=== PATIENT | female | born 1970 | race Caucasian/White ===

== ENCOUNTER 2019-11-15 17:27 | Outpatient (CLI) | payer OTHER, SELFPAY ==
[2019-11-15 18:28] LABS: Basophils Percent Auto 0.2 % (0.2-1.2); Eosinophils Absolute Auto 0.1 K/mm3 (0-0.3); Eosinophils Percent Auto 1.2 % (0-4.4); Hematocrit 38.3 % (37.0-47.0); Hemoglobin 12.7 g/dL (12.0-15.0); Immature Granulocyte Absolute 0.02 K/mm3 (0.00-0.031); Immature Granulocyte Percent A 0.3 % (0-0.5); Lymphocytes Absolute Auto 1.69 K/mm3 (0.9-3.2); Lymphocytes Percent Auto 25.7 % (18.3-44.2); Mean Corpuscular HGB Conc 33.2 g/dl (32-36); Mean Corpuscular Hemoglobin 28.7 pg (26-34); Mean Corpuscular Volume 86.7 fl (80-100); Mean Platelet Volume 10.6 fl (7.4-10.4); Monocytes Absolute Auto 0.4 K/mm3 (0.1-0.6); Monocytes Percent Auto 5.3 % (2.6-8.5); Neutrophils Absolute Auto 4.4 K/mm3 (1.3-6.7); Neutrophils Percent Auto 67.3 % (45.5-73.1); Platelet Count Result 216 k/mm3 (150-375); Red Blood Count 4.42 M/mm3 (4.2-5.4); Red Cell Distribution Width 13.3 % (11.5-14.5); White Blood Count 6.6 K/mm3 (4.5-10.0)
[2019-11-15 18:40] LABS: Blood Urea Nitrogen 15 mg/dL (7-17); Calcium 9.3 mg/dL (8.4-10.2); Carbon Dioxide 26 mmol/L (22-30); Chloride 99 mmol/L (98-107); Cholesterol 177 mg/dL (0-200); Estimated Glomerular Filt Rate > 60; Glucose 79 mg/dL (65-105); HDL Direct 61 mg/dL; Potassium 3.6 mmol/L (3.4-5.0); Sodium 136 mmol/L (137-145); Triglycerides 88 mg/dL (<150)
[2019-11-15 18:51] LABS: LDL Cholesterol Direct 102 mg/dL
[2019-11-19 07:02] LABS: FSH 6.6 mIU/mL (***); LH 3.9 mIU/mL (***)
[2019-11-23 16:56] LABS: Estradiol, Ultrasensitive 112 pg/mL
== END 2019-11-15 17:28 | disposition home or self-care (01) ==
PROVIDERS: PCP Family Medicine; Visit Provider Family Medicine
DX: Z13.1 Encounter for screening for diabetes mellitus (principal); Z13.220 Encounter for screening for lipoid disorders; N92.0 Excessive and frequent menstruation with regular cycle; Z79.899 Other long term (current) drug therapy; Z79.82 Long term (current) use of aspirin
CPT/HCPCS: 36415; 80048; 80061; 82670; 83001; 83002; 84443; 85025

== ENCOUNTER 2019-11-28 14:50 | Outpatient (CLI) | payer OTHER, SELFPAY ==
--- NOTE | ~2019-11-28 | MM_ITS ---
EXAMINATION: MM screening yoav BI w omayra HISTORY: Screening mammogram TECHNIQUE: Craniocaudal and mediolateral oblique 3-D tomosynthesis images were obtained and synthetic 2-D images were generated. CAD analysis was submitted and interpreted. COMPARISON: Comparison to multiple prior studies sequentially, with oldest reviewed study dated 06/2013. BREAST PARENCHYMAL COMPOSITION: There are scattered areas of fibroglandular density. FINDINGS: There is no evidence of suspicious mass, calcification, or architectural distortion to sugg est malignancy in either breast. There has been no suspicious interval change. IMPRESSION: 1. No mammographic evidence of malignancy. 2. Recommend routine screening mammography in one year. BI-RADS Category 1: Negative Reviewed, dictated and finalized at location A. NICAL PROJECT LEAD
== END 2019-11-28 14:51 | disposition home or self-care (01) ==
PROVIDERS: PCP Family Medicine; Visit Provider Family Medicine
DX: Z12.31 Encounter for screening mammogram for malignant neoplasm of breast (principal)
CPT/HCPCS: 77063; 77067

== ENCOUNTER 2019-12-12 12:56 | Outpatient (CLI) | payer OTHER, SELFPAY ==
--- NOTE | ~2019-12-12 | US_ITS ---
EXAMINATION: US pelvic complete w TV EXAM DATE: 12/12/2019 15:31 INDICATION: Menorrhagia. TECHNIQUE: Pelvic transabdominal and transvaginal sonogram was performed. There are multiple graysca le and Doppler images available for interpretation. Comparison is made to prior examination from 2013. FINDINGS: Uterus measures 8.5 x 6.8 x 6.0 cm, is retroverted and morphologically normal. Endometria l stripe measures 15 mm, within normal limits. There is no free pelvic fluid. Right adnexa: The ovary measures 5.0 x 3.1 x 2.6 cm, with a thick-walled cystic structure measuring 2 .2 cm, could be hemorrhagic cyst, endometrioma or possibly small cystic neoplasm; recommend 6 week fo llow-up pelvic sonogram. Ovarian vascular flow confirmed. Left adnexa: The ovary measures 4.7 x 1.9 x 2.2 cm and is morphologically normal. Ovarian vascular fl ow confirmed. IMPRESSION: 1. Complex thick-walled right ovarian cystic lesion; recommend 6 week follow-up pelvic sonogram. Reviewed, dictated and finalized at location A. IMPRESSION: 1. Complex thick-walled right ovarian cystic lesion; recommend 6 week follow-u p pelvic sonogram.
== END 2019-12-12 12:57 | disposition home or self-care (01) ==
LOC: ANHIMG 12:58
PROVIDERS: PCP Family Medicine; Visit Provider Family Medicine
DX: N92.0 Excessive and frequent menstruation with regular cycle (principal); N83.9 Noninflammatory disorder of ovary, fallopian tube and broad ligament, unspecified
CPT/HCPCS: 76830; 76856

== ENCOUNTER 2020-08-01 14:34 | Emergency (ER) | payer OTHER, SELFPAY ==
[2020-08-01 14:39] VITALS: BP 127/78; PULSE 88; RESP 12; TEMP 36.4; O2SAT 100
--- NOTE | 2020-08-01 15:02 | ED.URI ---
HPI - URI/Sore Throat General Chief Complaint: Upper Respiratory Infection Stated Complaint: sore throat/body aches/chills Time Seen by Provider: 08/01/20 14:35 Source: patient Mode of arrival: ambulatory Limitations: no limitations History of Present Illness HPI Narrative: 49-year-old female presents to urgent care with complaints of sore throat, body aches, chills, nausea and diarrhea since yesterday. Patient reports that her son had strep throat last week but he has been with his father during this illness. Patient is a home health nurse. Patient denies fever, cough, shortness of breath, wheezing or vomiting. Patient has not tried taking any [id number] medications for her symptoms. Patient denies recent travel. MD elicited complaint: sore throat Onset (ago): day(s) (1) Able to tolerate fluids by mouth: Yes Associated symptoms: chills, sore throat, nausea and diarrhea Treatments prior to arrival: none Related Data Home Medications Medication Instructions Recorded Confirmed bupropion HCl 300 mg PO DAILY 08/01/20 08/01/20 Allergies Allergy/AdvReac Type Severity Reaction Status Date / Time No Known Allergies Allergy Mild Verified 08/01/20 14:39 Review of Systems Constitutional: Constitutional: Reports chills, Denies fatigue, Denies fever(s) and Denies weakness ENT: Denies dysphagia, Denies dizziness, Denies epistaxis, Denies nasal congestion and Reports sore throat Respiratory: Respiratory: Denies chest congestion, Denies cough, Denies dyspnea and Denies wheezing Gastrointestinal: Gastrointestinal: Denies abdominal pain, Denies bloating, Denies constipation, Reports diarrhea, Reports nausea and Denies vomiting Musculoskeletal: Musculoskeletal: Denies back pain Integumentary/Breasts: Skin/Breast: Denies rash Neurologic: Denies dizziness Endocrine: Endocrine: Denies fatigue PMFSH Past Medical History Medical History Anxiety Depression HTN (hypertension) IBS (irritable bowel syndrome) Pericarditis Seizure Surgical History Surgical History History of tubal ligation Family History Family History Sibling Patient's sister is in good health Patient's brother is in good health Family history of eczema Father Depression Patient's father is in good health Family history of alcoholism Mother Hypertension Family history of eczema Family history of osteoarthritis Patient's mother is in good health Family history of allergic disorder Family history of irritable bowel syndrome Grandparent Family history of alcoholism Cerebrovascular accident Family history of malignant neoplasm, Onset Age: 70 Family history of coronary artery disease Other Asthma Diabetes mellitus Family history of arthritis Family history of development disorder Family history of malignant neoplasm of breast Family history of mental disorder Social History Social History Smoking status: Never smoker Comments At time of signature, I agree with nursing past medical, surgical, social and family history. There is no relevant family history pertinent to the presenting complaint. Exam Const: General: no acute distress and alert Nutritional Appearance: well nourished Orientation/consciousness: patient oriented x3 HENMT: Head: normal to inspection Ears: external ears normal and TM's normal bilaterally Mouth: Yes moist mucous membranes and Yes dry mucous membranes Throat: uvula midline Other: mild erythema noted to posterior pharynx Neck: Neck: normal visual inspection Resp: Effort & Inspection: normal respiratory effort Auscultation: clear to auscultation bilaterally and no wheezes Cardio: Rate: regular rate Rhythm: regular rhythm Skin: General skin exam: normal colo
== END 2020-08-01 15:20 | disposition home or self-care (01) ==
PROVIDERS: Emergency Provider Nurse Practitioner Family; PCP Family Medicine
DX: J06.9 Acute upper respiratory infection, unspecified (principal); Z20.828 Contact with and (suspected) exposure to other viral communicable diseases; I10 Essential (primary) hypertension; F32.9 Major depressive disorder, single episode, unspecified
CPT/HCPCS: 87081; 87880; 99213; G0463

== ENCOUNTER 2020-11-11 08:00 | Outpatient (CLI) | payer OTHER, SELFPAY ==
[2020-11-11 08:15] LABS: Basophils Percent Auto 0.2 % (0.2-1.2); Eosinophils Absolute Auto 0.1 K/mm3 (0-0.3); Eosinophils Percent Auto 2.3 % (0-4.4); Hematocrit 38.1 % (37.0-47.0); Hemoglobin 12.5 g/dL (12.0-15.0); Immature Granulocyte Absolute 0.01 K/mm3 (0.00-0.031); Immature Granulocyte Percent A 0.2 % (0-0.5); Lymphocytes Absolute Auto 1.42 K/mm3 (0.9-3.2); Mean Corpuscular HGB Conc 32.8 g/dl (32-36); Mean Corpuscular Hemoglobin 28.8 pg (26-34); Mean Corpuscular Volume 87.8 fl (80-100); Mean Platelet Volume 10.1 fl (7.4-10.4); Monocytes Absolute Auto 0.5 K/mm3 (0.1-0.6); Monocytes Percent Auto 7.5 % (2.6-8.5); Neutrophils Absolute Auto 4.1 K/mm3 (1.3-6.7); Neutrophils Percent Auto 66.8 % (45.5-73.1); Platelet Count Result 173 k/mm3 (150-375); Red Blood Count 4.34 M/mm3 (4.2-5.4); Red Cell Distribution Width 13.7 % (11.5-14.5); White Blood Count 6.2 K/mm3 (4.5-10.0)
[2020-11-11 09:18] LABS: Anion Gap 6 mmol/L (8-16); Blood Urea Nitrogen 20 mg/dL (7-17); Calcium 8.2 mg/dL (8.4-10.2); Carbon Dioxide 26 mmol/L (22-30); Chloride 108 mmol/L (98-107); Cholesterol 181 mg/dL (0-200); Glucose 99 mg/dL (65-105); HDL Direct 55 mg/dL; Potassium 4.4 mmol/L (3.4-5.0); Sodium 140 mmol/L (137-145); Triglycerides 98 mg/dL (<150)
[2020-11-11 09:26] LABS: LDL Cholesterol Direct 102 mg/dL
[2020-11-11 12:46] LABS: Estimated Glomerular Filt Rate > 60
== END 2020-11-11 08:01 | disposition home or self-care (01) ==
PROVIDERS: PCP Family Medicine; Visit Provider Family Medicine
DX: Z00.00 Encounter for general adult medical examination without abnormal findings (principal); Z13.220 Encounter for screening for lipoid disorders; Z13.1 Encounter for screening for diabetes mellitus
CPT/HCPCS: 36415; 80048; 80061; 85025

== ENCOUNTER 2020-11-25 15:30 | Outpatient (CLI) | payer OTHER, SELFPAY ==
--- NOTE | ~2020-11-25 | US_ITS ---
EXAMINATION: US pelvic complete w TV DATE: 11/25/2020 16:27 INDICATION: Right ovarian cyst. TECHNIQUE: Multiple transabdominal and transvaginal sonographic images of the pelvis were obtained. COMPARISON: Ultrasound 12/12/2019 FINDINGS: TRANSABDOMINAL ULTRASOUND: The uterus measures 8.2 x 5.4 x . There is no free fluid in the pelvis. TRANSVAGINAL ULTRASOUND: The endometrial complex measures 6 mm in thickness. The right ovary measures 4.2 x 2.4 x 2.5 cm. The left ovary measures 3.4 x 1.7 x 1.9 cm. There is normal vascular flow in the ovaries. IMPRESSION: 1. Normal pelvis. Reviewed, dictated and finalized at location A. ROOFER IMPRESSION: 1. Normal pelvis.
== END 2020-11-25 15:31 | disposition home or self-care (01) ==
PROVIDERS: PCP Family Medicine; Visit Provider Family Medicine
DX: N83.201 Unspecified ovarian cyst, right side (principal)
CPT/HCPCS: 76830; 76856

== ENCOUNTER 2020-12-11 07:30 | Outpatient (RCR) | payer OTHER, SELFPAY ==
--- NOTE | 2020-11-27 08:54 | OTOPEVAL ---
OCCUPATIONAL THERAPY INITIAL EVALUATION REPORT 11/27/20 Thank you for referring Madeline Rodríguez to [facility].? The patient is scheduled to be seen for therapy? 2x/week for 4 weeks. Please review, sign, date and return this plan of care KP. I agree with and certify that the following plan of care is medically necessary. Referring Physician Date Referring Provider: Kahlil Carmichael MD *OT Outpatient Evaluation Therapy Assessment Status Assessment Status Assessment Status Evaluation Outpatient Past Medical History Past Medical History Source of Past Medical History Patient Neurological History Hx Other Neurological Disorders Yes: Bilateral carpal tunnel syndrome dx 2013, wears splints PRN Cardiovascular History Hx Cardiac Disorders No Significant History Respiratory History Hx Respiratory Disorders No Significant History Gastrointestinal History Hx Gastrointestinal Disorders No Significant History Genitourinary History Hx Genitourinary Disorders No Significant History Musculoskeletal History Hx Arthritis Yes: neck, knees Hematological History Hx Hematological Disorders No Significant History Endocrine History Hx Endocrine Disorders No Significant History HEENT History Hx HEENT Disorders No Significant History Reproductive History Hx Tubal Ligation Yes Evaluation Information Problem Diagnosis left carpal tunnel, lateral epicondylitis, lesion of ulnar nerve Onset Sep 2020 Cause Insidious Subjective Information Patient reports that the left Query Text:As Reported By Patient/ arm pain flared up around Family September of 2020 after she did some home remodeling projects . She reports having constant burning pain in the left lateral elbow. She did receive a Kenalog injection (~2 weeks ago), which she states has helped the pain tremendously. She continues to have some residual pain in the left elbow, however she is now able lift objects on/off shelves now. She continues to have pain at night and during the day. 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
--- NOTE | 2020-12-18 10:27 | PCOTNOTE ---
OCCUPATIONAL THERAPY DISCHARGE SUMMARY 12/18/20 Madeline participated in the initial OT evaluation and 3 subsequent treatment sessions for left lateral epicondylitis, left ulnar nerve compression, and left median nerve compression. She called and cancelled the formal therapy reassessment this week. Called patient and she reports feeling ready for discharge as she has made progress with reduced pain in the left UE. Patient is currently independent with non-medication pain management, UE stretching for wrist and finger extensors, postural stretching HEP, and night splinting for carpal tunnel syndrome. Thank you for referring Madeline Rodríguez to [facility]. Please review, sign, date and return this Discharge Note KP. I agree with and certify that the following plan of care is medically necessary. Referring Physician Date Referring Provider: Kahlil Carmichael MD
== END 2020-12-19 10:19 | disposition home or self-care (01) ==
LOC: ANHOT 07:30
PROVIDERS: PCP Family Medicine; Visit Provider Orthopaedic Surgery
DX: G56.03 Carpal tunnel syndrome, bilateral upper limbs (principal); G56.22 Lesion of ulnar nerve, left upper limb; M77.12 Lateral epicondylitis, left elbow
CPT/HCPCS: 97018; 97035; 97110; 97140; 97165

== ENCOUNTER 2021-09-10 15:32 | Outpatient (CLI) | payer OTHER, SELFPAY | END 2021-09-10 15:33 | disposition home or self-care (01) | LOC: ANHLAB 15:38 | PROVIDERS: PCP Family Medicine; Visit Provider Family Medicine | DX: R07.0 Pain in throat (principal) | CPT/HCPCS: 87081; 87880 ==

== ENCOUNTER 2021-09-18 17:11 | Outpatient (CLI) | payer OTHER, SELFPAY ==
--- NOTE | ~2021-09-18 | MM_ITS ---
EXAMINATION: MM screening yoav BI w omayra HISTORY: Screening TECHNIQUE: Craniocaudal and mediolateral oblique 3-D tomosynthesis images were obtained and synthetic 2-D images were generated. CAD analysis was submitted and interpreted. COMPARISON: Comparison to multiple prior studies sequentially, with oldest reviewed study dated 12/22. BREAST PARENCHYMAL COMPOSITION: There are scattered areas of fibroglandular density. FINDINGS: There is no evidence of suspicious mass, calcification, or architectural distortion to sugg est malignancy in either breast. There has been no suspicious interval change. IMPRESSION: 1. No mammographic evidence of malignancy. 2. Recommend routine screening mammography in one year. BI-RADS Category 1: Negative Reviewed, dictated and finalized at location A. NET C DEVELOPER
== END 2021-09-18 17:12 | disposition home or self-care (01) ==
LOC: ANHIMG 17:12
PROVIDERS: PCP Family Medicine; Visit Provider Nurse Practitioner Family
DX: Z12.31 Encounter for screening mammogram for malignant neoplasm of breast (principal)
CPT/HCPCS: 77063; 77067

== ENCOUNTER 2022-07-11 13:32 | Emergency (ER) | payer OTHER, SELFPAY ==
[2022-07-11 13:38] VITALS: BP 121/77; PULSE 85; RESP 16; TEMP 36.2; O2SAT 99
--- NOTE | 2022-07-11 14:15 | ED.FEMALEGU ---
HPI - Female Genitourinary General Chief complaint: Urogenital-Female Stated complaint: Possible UTI History of Present Illness HPI Narrative: This a 51-year-old female comes in complaining of a possible UTI. Patient states that she just became sexually active approximately 2 months ago patient states that her she is having abdominal pain and had a period for the first time in about 7 months. Patient states that her vaginal area is sore and she has pain and not for sure where it comes from patient denies being worried about any STIs. Patient states that she was seen by her PCP for the same symptoms she was swabbed but her results are not back yet and she is just worried and wants to make sure she does not have a UTI. Patient also complains of painful sex she states that she has had her tubes tied her partner has had a vasectomy and she is on her menstrual cycle so there is no possibility of . Did attempt to review to see if we had any results back she obviously did not have her test being done at any of our facilities Related Data Home Medications Medication Instructions Recorded Confirmed bupropion HCl 300 mg 24 hr tablet, 300 mg PO DAILY 08/01/20 07/11/22 extended release Allergies Allergy/AdvReac Type Severity Reaction Status Date / Time No Known Allergies Allergy Mild Verified 07/11/22 13:36 [facility] Past Medical History Medical History (Updated 07/11/22 @ 14:17 by Rick Tavarez NP) Anxiety Carpal tunnel syndrome, left Cubital tunnel syndrome on left Depression HTN (hypertension) IBS (irritable bowel syndrome) Pericarditis Seizure Surgical History Surgical History History of tubal ligation Family History Family History Sibling Patient's sister is in good health Patient's brother is in good health Family history of eczema Father Depression Patient's father is in good health Family history of alcoholism Mother Hypertension Family history of eczema Family history of osteoarthritis Patient's mother is in good health Family history of allergic disorder Family history of irritable bowel syndrome Grandparent Family history of alcoholism Cerebrovascular accident Family history of malignant neoplasm, Onset Age: 70 Family history of coronary artery disease Other Asthma Diabetes mellitus Family history of arthritis Family history of development disorder Family history of malignant neoplasm of breast Family history of mental disorder Social History Social History Smoking status: Never smoker Exam Narrative: GENERAL:Well-appearing, well-nourished, and in no acute distress. HEAD:Normocephalic, atraumatic. EYES: PERRLA. ENT: Nares clear, Mucous membranes moist. CHEST: No respiratory distress. HEART: Regular rate and rhythm. Normal peripheral pulses. ABDOMEN: Soft, nontender, nondistended, normal active bowel sounds. EXTREMITIES: Normal range of motion. No edema. SKIN: Warm, dry, no rash. NEURO: No focal deficits. Alert and oriented x3. Course Course Level of Care: Express Care Visit Vital Signs Vital signs: Vital Signs Temperature 97.2 F L 07/11/22 13:38 Pulse Rate 85 07/11/22 13:38 Respiratory Rate 16 07/11/22 13:38 Blood Pressure 121/77 07/11/22 13:38 Pulse Oximetry 99 07/11/22 13:38 Oxygen Delivery Room Air 07/11/22 13:38 Temperature 97.2 F L 07/11/22 13:38 Pulse Rate 85 07/11/22 13:38 Respiratory Rate 16 07/11/22 13:38 Blood Pressure 121/77 07/11/22 13:38 Pulse Oximetry 99 07/11/22 13:38 Oxygen Delivery Room Air 07/11/22 13:38 MDM - Female Genitourinary Differential Diagnosis Differential diagnosis: Likely urinary tract infection, bacterial vaginosis, cervicitis, cystitis and dysmenorrhea Lab Data Labs: Urine Glu
== END 2022-07-11 14:21 | disposition home or self-care (01) ==
PROVIDERS: Emergency Provider Nurse Practitioner Family; PCP Family Medicine
DX: N30.90 Cystitis, unspecified without hematuria (principal); I10 Essential (primary) hypertension; F41.9 Anxiety disorder, unspecified; F32.A Depression, unspecified
CPT/HCPCS: 81003; 87086; 87088; 99213; G0463

== ENCOUNTER 2022-08-01 07:23 | Outpatient (CLI) | payer OTHER, SELFPAY ==
--- NOTE | ~2022-08-01 | MR_ITS ---
EXAMINATION: MR foot RT wo/w con DATE: 08/01/2022 08:24 INDICATION: Neoplasm of specified behavior of bone TECHNIQUE: Magnetic resonance imaging (MRI) of the right fore/mid foot was performed without intraven ous contrast. Sequences included axial, sagittal and coronal T1-weighted FSE and T2-weighted FS FSE, axial T1-weighted FS FSE and postcontrast axial, sagittal and coronal T1-weighted FS FSE. COMPARISON: None FINDINGS: There is an elevated enhancing mass measuring 12 x 11 x 6 mm arising projecting beyond the level of t he skin surface plantar to the webspace between the second and third toes. The mass is smooth well-de fined margins and does not appear to extend into the subdermal fat. No other mass or abnormal enhanci ng lesions identified. The bones are unremarkable with normal alignment and normal marrow signal with no reactive edema, fracture or pathologic marrow replacing process. Joint spaces are normal. No join t effusions or other abnormal fluid collections. Lisfranc ligament and the collateral ligaments at th e metatarsophalangeal and interphalangeal joints are normal. The visualized portions of the flexor an d extensor tendons as well as intrinsic musculature of the foot are normal. IMPRESSION: 1. Nonspecific 12 x 11 x 6 mm enhancing and elevated dermal based mass at the plantar aspect of the w ebspace base of the second and third toes with no evident invasion of the subdermal fat which could b e either benign such as a plantar wart or less likely malignant. Definitive diagnosis would require b iopsy. Reviewed, dictated and finalized at location B. IMPRESSION: 1. Nonspecific 12 x 11 x 6 mm enhancing and elevated dermal based mass at the p lantar aspect of the webspace base of the second and third toes with no evident invasion of the subdermal fat which could be either benign such as a plantar w art or less likely malignant. Definitive diagnosis would require biopsy.
== END 2022-08-01 07:24 | disposition home or self-care (01) ==
LOC: ANHIMG 07:25
PROVIDERS: PCP Family Medicine; Visit Provider Student in an Organized Health Care Education/Training Program
DX: D49.2 Neoplasm of unspecified behavior of bone, soft tissue, and skin (principal)
CPT/HCPCS: 73720; A9577

== ENCOUNTER 2022-09-21 13:00 | Outpatient (RCR) | payer OTHER, SELFPAY ==
--- NOTE | 2022-08-25 11:45 | PTOPEVAL1 ---
Assessment and note entered by Mary Pierre DPT Evaluation Information Assessment Status Evaluation Subjective Information Pt reports mesh bladder sling in 2004 and tubal ligation at the same time. Reports she was doing well until recently but has a long history of slight incontinence. Pt thinks she is laura- menopausal. Reports recent pelvic pain and incontinence. Urinates 6 times a day, usually not at night but occasionally will 1 time. Some pain with urination at times (has had UTI's or bacterial vaginosis). Incontinence occurs if her bladder is too full and she is rushing to void, a couple times a week. Incontinence will be a small amount, wears a liner and changes 2-3 times a day due to discharge. BM daily, no pain. Pelvic pain with infections, intercourse, and has a history of PCOS which has also caused pelvic pain. Highest pain 7/10 and lasts a short amount of time. Lowest pain 0/10. Also reports some SIJ pain and clicking after prolonged standing. Pt has been 2 times with 2 vaginal deliveries, tearing and stitches with both. Deliveries were 15 months apart. Reported Pain Level Pain Score 0: Self Report Assessment PT Clinical Summary The patient is presenting to skilled therapy with a recent increase in urinary incontinence and pelvic and SIJ pain. She presents with decreased pelvic floor strength and endurance, as well as decreased lower extremity and core strength and SIJ impairments which are contributing to her pain and incontinence. She will highly benefit from therapy to address her impairments and return safely to prior level of function. Plan of Care Interventions Electrical Stimulation,Hot Pack/Cold Pack,Manual Therapy,Neuro Re-education,Patient/Caregiver Education,Therapeutic Activities,Therapeutic Exercise,Self-Care/Home Management PT Services Indicated Yes Treatment Frequency and 1 time a week for 4 weeks Duration These treatments will address the objective and functional deficits as defined above. The patient will be advanced safely and appropriately in order for the patient to progress towards his/her prior level of function. Additional exercises will be introduced and as well as a comprehensive home exercise program upon discharge, if needed, ?to ensure carryover of functional gains achieved in the clinic. This treatment plan has been reviewed and agreement upon by the patient.
--- NOTE | 2022-09-21 13:38 | PTOPDC ---
Assessment and note entered by Mary Pierre DPT Evaluation Information Assessment Status Progress Subjective Information Pt reports improvements in her pain, highest pain 2-3/10 in her back and no incontinence in 2 weeks. Feels improvements in her ability to do her exercises. Reports no more snapping in her back as well. Still has pain with intercourse, brief and positional. Reported Pain Level Pain Score 0: Self Report Assessment PT Clinical Summary The patient has made good progress in therapy, reports overall decrease to her pelvic and back pain. She also reports improvements in urinary incontinence and has not had any recently. She demonstrates improved core and LE strength, as well as improved pelvic floor strength and endurance. Due to her progress as well as upcoming foot surgery, plan for discharge at this time. She has been educated in a thorough HEP to continue progressing independently as well as to contact MD and/or PT as needed. Plan of Care PT Services Indicated No
== END 2022-09-23 11:07 | disposition home or self-care (01) ==
LOC: ANHGOSHPT 13:00
PROVIDERS: PCP Family Medicine
DX: M62.9 Disorder of muscle, unspecified (principal)
CPT/HCPCS: 97110; 97112; 97140; 97162

== ENCOUNTER 2022-09-25 00:36 | Day surgery (SDC) | payer OTHER, SELFPAY ==
[2022-09-10 09:21] VITALS: BMI 24.7
--- NOTE | 2022-09-10 09:22 | PC.NURSE ---
Report to the Outpatient Waiting Room, entrance under the green pavilion located off [facility], at time _0700_ on date _[id number]_. Planned Procedure Time: _0900_. Time changes happen often and if your time is changed the preop area will call you the afternoon before. - You and your visitor will be asked to self-screen and do not enter if you have any COVID symptoms. - Only one visitor is requested with a max of two and NO children visitors are allowed at this time. - The patient visitor may be requested to leave or wait in car when not with patient due to distancing restrictions. - A mask is optional within the hospital. Patients may have clear liquids (water, carbonated beverages, clear teas, apple juice) until 3 hours prior to surgery with a maximum of 20 ounces. - No food from midnight until time of surgery Take the following medications with a SIP of water the morning of surgery: ____Bupropion Medications to discontinue per physician ___Cranberry and joint health Date to take last knvq___[id number] Please no make-up, nail malaysian, hairspray, perfume, deodorant, or body powder the day of surgery. No jewelry (including any body piercings) or valuables the day of surgery, leave them at home. Please take a shower or bath the night before, or the morning of, surgery with an antibacterial soap. Wear comfortable, loose fitting clothing. - Jewelry must be removed prior to entering the operating room. Rings and piercings that are not removed may be cut off. - The hospital will not accept responsibility for valuables. - Please leave all valuables, including medications, at home the day of surgery. If you are going home after surgery, a licensed industrial tractor driver must drive you home. - NO public transportation without another adult if you receive anesthesia. - We recommend that an adult stay with you for 24 hours following discharge. - We also recommend that you do not drive, make important decision, drink alcoholic beverages, or take any drugs that were not prescribed by your health care provider for at least 24 hours after your discharge time. Follow any additional instructions given to you from your surgeon. If you or anyone in your household have experienced Covid symptoms in the past week, please notify your surgeon or the nurse liaison at the phone number below for possible testing. Telephone instructions given to _Patient__and asked if any additional questions and then verbalized understanding. Patient advised to call surgeon office or pre surgery nurse liaison [phone] if any additional questions.
--- NOTE | 2022-09-25 07:23 | WPDHPUPDATE1 ---
History and Physical Update Update Date/Time: 09/25/22 07:23 History and Physical has been reviewed, including an updated exam of the patient. There are NO changes in the patient's condition. Risks, benefits, and alternatives have been discussed and questions answered. Patient agrees to proceed with procedure.
--- NOTE | 2022-09-25 07:49 | WPDANESEPPF ---
Anes - Initial Pre Proc Eval Procedure: Operation Date: 09/25/22 09:00 Proposed Procedures p Excision of Soft Tissue Skin Mass Right Foot - Ac Suárez JR, MD Date/Time: 09/25/22 07:49 Surgeon: Ac Suárez JR, MD Pre Op Diagnosis: painful soft tissue mass right foot Patient Data Age: 51 Gender: F Height: 1.63 m Weight: 65.5 kg Allergies Allergy/AdvReac Type Severity Reaction Status Date / Time No Known Allergies Allergy Mild Verified 09/10/22 09:15 Home Medications Medication Instructions Recorded Confirmed Type bupropion HCl 150 mg 24 hr tablet, 150 mg PO DAILY 09/10/22 09/10/22 History extended release cranberry fruit 450 mg tablet 900 mg PO DAILY 09/10/22 09/10/22 History (cranberry) glucosamin 375 mg-chond 300 2 cap PO DAILY 09/10/22 09/10/22 History mg-collagen 50 mg-hyaluronic acid 2 mg cap Patient hx anesthesia problems: none Family hx anesthesia problems: none Results Review: All pre-operative results and documents have been reviewed as part of the pre-operative evaluation. [facility] Past Medical History Medical History Anxiety Carpal tunnel syndrome, left Cubital tunnel syndrome on left Depression HTN (hypertension) IBS (irritable bowel syndrome) Pericarditis Seizure Surgical History Surgical History History of tubal ligation Family History Family History Sibling Patient's sister is in good health Patient's brother is in good health Family history of eczema Father Depression Patient's father is in good health Family history of alcoholism Mother Hypertension Family history of eczema Family history of osteoarthritis Patient's mother is in good health Family history of allergic disorder Family history of irritable bowel syndrome Grandparent Family history of alcoholism Cerebrovascular accident Family history of malignant neoplasm, Onset Age: 70 Family history of coronary artery disease Other Asthma Diabetes mellitus Family history of arthritis Family history of development disorder Family history of malignant neoplasm of breast Family history of mental disorder Social History Social History Smoking status: Never smoker Alcohol intake: current Drinks per week: 1 Living arrangements: with family Spiritual care concerns: No Anes - Eval Final PreProcedure Day of Procedure 09/25/22 07:49 Patient weight: normal Heart: regular rate and rhythm Lungs: clear to auscultation Airway: Mallampati scale class II Neurological: alert and oriented Last oral intake: >/= 8 hours ASA classification: II Emergent: no Anesthetic plan: proceed Anesthesia type and monitoring: general GIVS and standard monitoring Results Review: All pre-operative results and documents have been reviewed as part of the pre-operative evaluation. Informed Consent: The patient's anesthetic plan and its attendant risks and benefits were discussed with the patient/family/POA. Questions were solicited and answers provided to the satisfaction of the patient/family/POA.
[2022-09-25 07:51] VITALS: BP 105/75; PULSE 84; RESP 14; TEMP 36.5; O2SAT 98
[2022-09-25] MEDS: LACTATED RINGERS 1,000 ML 30 ML IV CONT ×2 (07:55→10:13)
[2022-09-25] MEDS: ceFAZolin 2 GM/D5W 50 ML 2 GM/50 ML BAG IVPB (09:11)
[2022-09-25] MEDS: LIDOCAINE HCL 2% PF INJ 5 ML VIAL 20 ML INFILTRATE (09:38)
[2022-09-25 09:47] VITALS: BP 96/54; PULSE 83; RESP 20; O2SAT 98
--- NOTE | 2022-09-25 09:54 | W.PM.PROC2 ---
Procedure Note - Detailed Date of Procedure 09/25/22 Pre-op Diagnosis Painful soft tissue mass right foot Post-op Diagnosis Same Procedure Performed Excision of soft tissue mass right foot Surgeon Ac Suárez JR, DPM Anesthesia MAC and Local Indications Painful mass to the plantar forefoot Findings 1.0cm wide by 1.5cm long intradermal firm nodule Description of Procedure Under mild sedation, the patient was brought in to the operating room, placed on the operating table in the supine position.? A pneumatic ankle tourniquet was placed about the patient's ankle. Following IV sedation local anesthesia was obtained about the affected lower extremity utilizing 20 mL of a one to mix of 2% Lidocaine plain and 0.5% Marcaine plain to the tibial nerve.? The foot was then scrubbed, prepped, and draped in the usual aseptic manner.? An Esmarch bandage was then used to exsanguinate the patient's? foot and the pneumatic ankle tourniquet was then inflated. First, two converging semi-elliptical incisions were made about a 1.0cm wide by 1.5 long oval intradermal mass from the plantar right forefoot, sub second metatarsal head region. The entire lesion was excised in toto extending down to the subcutaneous fat layer. The entire ellipse of skin including the soft tissue mass was sent for gross and histopathology. The incision followed the 1:3 ratio in order to allow closure of the wound The wound site was flushed with sterile saline. No remaining abnormal tissue was noted post excision. The deep subcutaneous tissue was reapproximated with 3.0 Vicryl and the skin was reapproximated with 3.0 Prolene in Simple interrupted suture technique. Upon completion of the procedure, the plantar incision was dressed with adaptic, 4x4 gauze, kerlix and coban.? The pneumatic ankle tourniquet was then deflated and a prompt hyperemic response was noted to all digits of the affected foot.? A CAM Walker boot was then applied. ? The patient did very well with the procedure and the anesthesia.? The patient was transferred to the recovery room with vital signs stable and vascular status intact to all toes of the affected foot.? Following a period of postoperative monitoring, the patient will be discharged home on the following written and oral postoperative instructions: 1. The patient should keep the dressing clean, dry, and intact.? Use a cast protector bag with showers. 2. The patient will be strictly protected weight bearing with CAM walker boot. 3. Patient should ice and elevate the affected foot when at rest. 4. The patient is to contact Dr. Suárez for all postop care and if any problems arise. 5. Prescriptions were written for Percocet 5/325 dispensed 40 to be taken 1 p.o. q.4-6 hours as needed for severe pain.? Estimated Blood Loss 1 Drains No Packing No Pathology Yes Complications No immediate complications Condition Stable Disposition Same day
[2022-09-25 10:10] VITALS: BP 95/60; PULSE 74; RESP 20; O2SAT 100
[2022-09-25 10:35] VITALS: BP 113/70; PULSE 67; RESP 20
== END 2022-09-25 10:42 | disposition home or self-care (01) ==
PROVIDERS: PCP Family Medicine; Visit Provider Podiatrist Foot & Ankle Surgery
PROC: (CPT 11422; principal; 2022-09-25 09:00)
DX: D23.71 Other benign neoplasm of skin of right lower limb, including hip (principal)
CPT/HCPCS: 11422; 12041; 88304; J0690; J2250; J2370; J2405; J2704; J3010; J7120

== ENCOUNTER 2022-12-21 15:59 | Outpatient (CLI) | payer OTHER, SELFPAY ==
--- NOTE | ~2022-12-21 | US_ITS ---
Pelvic ultrasound. Clinical History: Dysmenorrhea Technique: Realtime transabdominal and transvaginal scanning of the pelvis was performed. Color flow Doppler and Doppler spectral analysis were performed. Findings: The uterus is retroverted. The endometrial stripe has a thickness of 3 mm. No focal mass i s identified. The right ovary measures 2.6 x 1.7 x 1.9 cm. No significant right ovarian or adnexal mass is seen. The left ovary measures 2.1 x 1.4 x 1.3 cm. No significant left ovarian or adnexal mass is seen. Vascular flow present in both ovaries on Doppler spectral analysis. There is no evidence of free fluid in the cul de sac. Impression: Unremarkable pelvic ultrasound. Reviewed, dictated and finalized at [facility]. Impression: Unremarkable pelvic ultrasound.
--- NOTE | ~2022-12-21 | US_ITS ---
Thyroid ultrasound. Clinical History: Thyroid nodule Findings: Real-time sonography of the thyroid gland was performed. The right lobe measures 4.2 x 1.7 x 1.7 cm. The left lobe measures 4.0 x 1.8 x 1.7 cm. The isthmus is 4 mm in AP diameter. There is a 0.9 x 0.9 x 0.8 cm isoechoic nodule with probable eggshell/peripheral calcification at the left mid to upper pole. Impression: 0.9 cm probable peripheral calcified nodule at the left mid to upper pole, as noted above. No further follow-up required for this nodule. Reviewed, dictated and finalized at location . Impression: 0.9 cm probable peripheral calcified nodule at the left mid to upper pole, as n oted above. No further follow-up required for this nodule.
== END 2022-12-21 16:00 | disposition home or self-care (01) ==
LOC: ANHIMG 16:01
PROVIDERS: PCP Family Medicine; Visit Provider Internal Medicine
DX: R94.6 Abnormal results of thyroid function studies (principal); E04.1 Nontoxic single thyroid nodule; N94.6 Dysmenorrhea, unspecified
CPT/HCPCS: 76536; 76830; 76856

== ENCOUNTER 2022-12-25 07:18 | Outpatient (CLI) | payer OTHER, SELFPAY ==
[2022-12-25 08:43] LABS: Thyroid Stimulating Hormone 0.845 uIU/mL (0.465-4.680)
[2022-12-25 08:49] LABS: Free T4 Free Thyroxine 1.17 ng/mL (0.78-2.19)
[2022-12-28 15:41] LABS: Thyrotropin Receptor Antibody 2.17 IU/L (<=2.00)
[2022-12-29 14:40] LABS: Thyroid Stimulating Immunoglob <89 % baseline (<140)
[2022-12-30 04:54] LABS: Thyroid Peroxidase Antibodies 2 IU/mL (<9)
== END 2022-12-25 07:19 | disposition home or self-care (01) ==
PROVIDERS: PCP Family Medicine; Visit Provider Internal Medicine
DX: E04.1 Nontoxic single thyroid nodule (principal); R94.6 Abnormal results of thyroid function studies
CPT/HCPCS: 36415; 83519; 84439; 84443; 84445; 86376

== ENCOUNTER 2023-04-19 15:13 | Outpatient (CLI) | payer OTHER, SELFPAY ==
--- NOTE | ~2023-04-19 | XR_ITS ---
XR hip BI 2V w AP pelvis DATE: 04/19/2023 15:34 INDICATION: Low back pain, bilateral hip pain. TECHNIQUE: AP pelvis. AP and lateral views of each hip. COMPARISON: None FINDINGS: No pelvic fracture or bone destruction. Normal alignment at the pubic symphysis and sacroil iac joints. Hip joint spaces are symmetric and well preserved. No fracture, dislocation, avascular ne crosis or bone destruction of either hip. IMPRESSION: Negative Reviewed, dictated and finalized at location B. IMPRESSION: Negative
--- NOTE | ~2023-04-19 | XR_ITS ---
XR lumbar spine 2-3V DATE: 04/19/2023 15:34 INDICATION: Low back pain, bilateral hip pain. TECHNIQUE: AP, lateral, coned lateral lumbosacral views COMPARISON: None FINDINGS: Likely chronic moderate anterior wedge compression fracture deformity of T11. Normal alignment of the lumbar spine with the exception of mild anterolisthesis at L5-S1, likely due to degenerative change at the apophyseal joints. The included lower thoracic and lumbar pedicles are intact. No lumbar spine fracture or bone destruct ion is detected. Lumbar and lumbosacral interspaces appear well preserved. The sacroiliac joints are intact. IMPRESSION: Grade 1 anterolisthesis at L5-S1, likely due to degenerative changes apophyseal joints Likely chronic moderate compression fracture of T11 Reviewed, dictated and finalized at location B. IMPRESSION: Grade 1 anterolisthesis at L5-S1, likely due to degenerative change s apophyseal joints Likely chronic moderate compression fracture of T11
== END 2023-04-19 15:14 | disposition home or self-care (01) ==
LOC: ANHIMG 15:18
PROVIDERS: PCP Family Medicine; Visit Provider Physician Assistant
DX: M54.50 Low back pain, unspecified (principal); M25.551 Pain in right hip; M25.552 Pain in left hip; R93.7 Abnormal findings on diagnostic imaging of other parts of musculoskeletal system
CPT/HCPCS: 72100; 73521

== ENCOUNTER 2023-05-05 15:30 | Outpatient (CLI) | payer OTHER, SELFPAY ==
--- NOTE | ~2023-05-05 | MR_ITS ---
EXAMINATION: MR lumbar spine wo con DATE: 05/05/2023 16:40 INDICATION: Degeneration of lumbar intervertebral discs TECHNIQUE: Magnetic resonance imaging (MRI) of the lumbar spine was performed without intravenous con trast. Sequences included sagittal T2-weighted FSE, sagittal T2-weighted FS FSE, sagittal T1-weighted FSE, and axial T2-weighted FSE. COMPARISON: Lumbar spine radiographs dated 04/19/2023 FINDINGS: 1 mm anterolisthesis L5 on S1. Vertebral body heights are normal. Normal marrow signal. Annular fiss ure and mild disc height loss at L5-S1. The conus medullaris terminates at L1-L2. There is normal sig nal in the caudal spinal cord. Paravertebral soft tissues are unremarkable. The following disc levels are specifically discussed: T12-L1 through L2-L3: The disc does not extend beyond the endplate margin. There is mild bilateral fa cet joint osteoarthritis. There is no neural foraminal stenosis. There is no central canal stenosis. L3-L4: Small left foraminal zone disc protrusion. There is bilateral facet joint osteoarthritis. Ther e is mild left and minimal right neural foraminal stenosis. There is no central canal stenosis. L4-L5: Disc is mildly bulging. There is mild bilateral facet joint osteoarthritis. There is mild righ t and mild to moderate left neural foraminal stenosis. There is mild central canal stenosis. L5-S1: Disc is bulging with annular fissure. There is moderate right and severe left facet joint oste oarthritis. There is mild bilateral neural foraminal stenosis. There is no central canal stenosis. Th ere is mild narrowing of the left lateral recess. IMPRESSION: 1. Mild lower lumbar predominant spondylosis. Reviewed, dictated and finalized at location A.
--- NOTE | ~2023-05-05 | MR_ITS ---
EXAMINATION: MR thoracic spine wo con DATE: 05/05/2023 16:39 INDICATION: Thoracic compression fracture TECHNIQUE: Magnetic resonance imaging (MRI) of the thoracic spine was performed without intravenous c ontrast. Sagittal localizer T1-weighted FSE of the cervicothoracic spine was obtained. Thoracic spine sequences included sagittal T2-weighted FSE, sagittal T1-weighted SE, Sagittal T2-weighted FS FSE, a nd axial T2-weighted FSE. COMPARISON: None FINDINGS: Alignment is normal.Chronic T11 compression fracture with 20%anterior vertebral body height loss. Rem aining vertebral body heights are normal. Normal bone marrow signal throughout.Mild disc height loss from T4-T5 through T9-T10. Bilateral paracentral disc protrusions at T4-T5, T6-T7, T7-T8 and T8-T9 an d on the left at T5-T6. The majority of these disc protrusions result in some indentation of the cord with mild central canal stenosis. There is normal spinal cord signal. The conus terminates at L1-L2. Multilevel mild thoracic facet osteoarthritis which contributes to mild neural foraminal stenosis at a few levels on both the left and right kidney mid and lower thoracic spine. Paravertebral soft tiss ues are unremarkable. IMPRESSION: 1. Mild thoracic spondylosis and chronic T11 compression fracture with 20% anterior vertebral body he ight loss. Reviewed, dictated and finalized at location A. IMPRESSION: 1. Mild thoracic spondylosis and chronic T11 compression fracture with 20% ante rior vertebral body height loss.
== END 2023-05-05 15:31 | disposition home or self-care (01) ==
PROVIDERS: PCP Family Medicine; Visit Provider Family Medicine
DX: M48.54XA Collapsed vertebra, not elsewhere classified, thoracic region, initial encounter for fracture (principal); M47.816 Spondylosis without myelopathy or radiculopathy, lumbar region; M47.814 Spondylosis without myelopathy or radiculopathy, thoracic region; M51.36 Other intervertebral disc degeneration, lumbar region
CPT/HCPCS: 72146; 72148

== ENCOUNTER 2023-06-30 16:24 | Outpatient (CLI) | payer OTHER, SELFPAY ==
[2023-06-30 17:46] LABS: Free T4 Free Thyroxine 1.18 ng/mL (0.78-2.19)
== END 2023-06-30 16:25 | disposition home or self-care (01) ==
LOC: ANHLAB 16:27
PROVIDERS: PCP Family Medicine; Visit Provider Internal Medicine
DX: E04.1 Nontoxic single thyroid nodule (principal); R94.6 Abnormal results of thyroid function studies
CPT/HCPCS: 36415; 84439; 84443

== ENCOUNTER 2023-07-02 08:30 | Outpatient (CLI) | payer OTHER, SELFPAY ==
--- NOTE | ~2023-07-02 | DEXA_ITS ---
Bone Density Report Name: CIARA BRAND Age: 52 Sex: Female Ethnicity: White Date of : 1970 Indication: screening for osteoporosis; height loss; prior fracture; Referring Provider: UNKNOWN, UNKNOWN Study: Bone densitometry was performed. Exam Date: July 02, 2023 Accession number: [id number] Bone Density: Region BMD T-score Z-score Classification AP Spine(L1-L4) 0.907 -1.3 -0.4 Osteopenia Femoral Neck (Left) 0.692 -1.4 -0.5 Osteopenia Total Hip (Left) 0.762 -1.5 -0.9 Osteopenia Femoral Neck (Right) 0.642 -1.9 -1.0 Osteopenia Total Hip (Right) 0.746 -1.6 -1.0 Osteopenia Femoral Neck Mean 0.667 -1.6 -0.7 Osteopenia Total Hip Mean 0.754 -1.5 -1.0 Osteopenia World Health Organization criteria for BMD impression classify patients as: Normal (T-score at or above -1.0), Osteopenia (T-score between -1.0 and -2.5), or Osteoporosis (T-score at or below -2.5). 10-year Fracture Risk: FRAX not reported because: Premenopausal woman Prior hip or vertebral fracture Clinical Information Provided by Patient: Have had a previous hip or vertebral fracture Has had a low trauma fracture Has used the following medications: HRT (i.e. estrogen/hormone therapy), Vitamin D, Calcium Patient maximum height was 64 Drinks caffeinated beverages Onset of menses at age 13 Premenopausal Number of children 2 Impression: The patient's bone mass is within expected range for age, gender and ethnicity. The patient has risk factors, including: previous fracture. Discussion: BONE DENSITY IS WITHIN EXPECTED LIMITS FOR AGE, SEX AND RACE. HISTORY OF FRACTURE. Although there is a predictable association between low bone mass and the risk of osteoporotic fractures in untreated postmenopausal women, there are no data relating bone density and fracture risk in younger women. The ISCD position is that the diagnosis of ?low bone mass? or ?osteoporosis? should not be made on densitometric criteria alone. WHO criteria only apply to postmenopausal women. Further evaluation should be considered given the patient's history of fracture at a young age. The patient should follow a healthful lifestyle (good nutrition with adequate calcium and vitamin D, and appropriate weight-bearing exercise). Follow-Up: Consider a repeat BMD and Vertebral Fracture Assessment (VFA) exam in 2 years or sooner if medically necessary, to reassess this patient's status. Reported by: Dr. Bao Underwood on 07/02/2023 8:54:00 AM. Reviewed, dictated and finalized at location A.
== END 2023-07-02 08:31 | disposition home or self-care (01) ==
LOC: CHSIMG 08:34
DX: M54.50 Low back pain, unspecified (principal); G89.29 Other chronic pain; M48.54XA Collapsed vertebra, not elsewhere classified, thoracic region, initial encounter for fracture; M85.89 Other specified disorders of bone density and structure, multiple sites
CPT/HCPCS: 77080

== ENCOUNTER 2023-07-14 16:15 | Outpatient (CLI) | payer OTHER, SELFPAY ==
--- NOTE | ~2023-07-14 | MM_ITS ---
EXAMINATION: MM screening yoav BI w omayra HISTORY: Screening mammogram TECHNIQUE: Craniocaudal and mediolateral oblique 3-D tomosynthesis images were obtained and synthetic 2-D images were generated. CAD analysis was submitted and interpreted. COMPARISON: 09/18/2021, 11/28/2019, 05/24/2018 bilateral screening mammogram examinations BREAST PARENCHYMAL COMPOSITION: There are scattered areas of fibroglandular density. FINDINGS: There is no evidence of suspicious mass, calcification, or architectural distortion to sugg est malignancy in either breast. There has been no suspicious interval change. IMPRESSION: 1. No mammographic evidence of malignancy. 2. Recommend routine screening mammography in one year. BI-RADS Category 1: Negative Reviewed, dictated and finalized at location A.
== END 2023-07-14 16:16 | disposition home or self-care (01) ==
LOC: ANHIMG 16:37
PROVIDERS: PCP Family Medicine; Visit Provider Obstetrics & Gynecology
DX: Z12.31 Encounter for screening mammogram for malignant neoplasm of breast (principal)
CPT/HCPCS: 77063; 77067

== ENCOUNTER 2023-08-30 10:00 | Outpatient (RCR) | payer OTHER, SELFPAY ==
--- NOTE | 2023-07-05 11:56 | OPREHPOC ---
Outpatient Therapy Plan of Care This is a Multidisciplinary Plan of Care that may contain components documented by all disciplines (PT, OT, and ST.) PT Problem 1 PT Problem #1 Knowledge Deficit PT Goal 1 Goal Pt to be IND with issued HEP Target Visit 4 PT Problem 2 PT Problem #2 Pain PT Goal 1 Goal Pt to report low back pain no greater than 3/10 in the last week. Target Visit 4 PT Goal 2 Goal Pt to report 75% improvement in overall symptoms. Target Visit 4 PT Problem 3 PT Problem #3 Impaired Strength PT Goal 1 Goal Pt to improve hip abduction strength to grossly 4+ /5 Target Visit 4 PT Goal 2 Goal Pt to be able to lift and carry 30lb from ground level without compensations. Target Visit 4 PT Problem 4 PT Problem #4 Pain PT Goal 1 Goal Pt to report no limitations with prolonged sitting , to be able to complete her work day. Target Visit 4
--- NOTE | 2023-07-05 11:56 | PTOPEVAL1 ---
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 She cannot pin point one specific injury. She states her pain is better with light movement , but increases with prolonged standing or repetitive movements. Pt is an OT. Reported Pain Level Pain Score 3: Self Report Assessment PT Clinical Summary Madeline presents to therapy today for her initial evaluation with a diagnosis of low back pain. Today she demonstrates good LE and lumbar ROM, her strength is good except her hip abductors and extensors are grossly 3+/5. In supine she has asymmetric hip and pelvis alignment. She demonstrates core weakness noted with difficultly to maintain a posterior pelvic tilt. Skilled therapy services are indicated to improve core and hip strength, to improve alignment, to manage symptoms, and to return to PLOF without limitations. Plan of Care Interventions Electrical Stimulation,Gait Training,Hot Pack/Cold Pack,Manual Therapy,Neuro Re-education,Patient/ Caregiver Educati,Therapeutic Activities, Therapeutic Exercise PT Services Indicated Yes Treatment Frequency and 1x/wk for 4 visits Duration These treatments will address the objective and functional deficits as defined above. The patient will be advanced safely and appropriately in order for the patient to progress towards his/her prior level of function. Additional exercises will be introduced and as well as a comprehensive home exercise program upon discharge, if needed, ?to ensure carryover of functional gains achieved in the clinic. This treatment plan has been reviewed and agreement upon by the patient.
--- NOTE | 2023-08-02 14:11 | PTOPPROG ---
Assessment and note entered by Dior Johnson, PT, DPT Evaluation Information Assessment Status Progress Diagnosis low back pain Onset 1-2 years Subjective Information Pt states her back is getting better overall. She states she is still having sore soreness and stiffness but is not having any sharp pains. Pt reports 80% improvement in overall symptoms. Assessment PT Clinical Summary Madeline presents to therapy today for her progress report following 4 visits of skilled therapy to treat her of low back pain. Today she demonstrates improved hip strength but still decreased from expected. Today's focus was on lifting mechanics and body mechanics during functional movements since this is when she continues to have pain. She would like to follow up in one month to review body mechanics again. At that time she will likely be discharged. Plan of Care Interventions Electrical Stimulation,Gait Training,Hot Pack/Cold Pack,Manual Therapy,Neuro Re-education,Patient/ Caregiver Educati,Therapeutic Activities, Therapeutic Exercise PT Services Indicated Yes Treatment Frequency and follow up in 1 month Duration These treatments will address the objective and functional deficits as defined above. The patient will be advanced safely and appropriately in order for the patient to progress towards his/her prior level of function. Additional exercises will be introduced and as well as a comprehensive home exercise program upon discharge, if needed, ?to ensure carryover of functional gains achieved in the clinic. This treatment plan has been reviewed and agreement upon by the patient.
--- NOTE | 2023-08-30 10:53 | PTOPDC ---
Assessment and note entered by Dior Johnson, PT, DPT Evaluation Information Assessment Status Discharge Diagnosis low back pain Onset 1-2 years Subjective Information Pt states overall she has been doing really well. She states she stopped doing her exercises for about a week and felt her back pain increase again . Reported Pain Level Pain Score 2: Self Report Assessment PT Clinical Summary Madeline presents to therapy today for her progress report following 5 visits of skilled therapy to treat her of low back pain. She is making good progress towards her therapy goals and states she feels like she does not need to continue with therapy at this time. She will be discharged per pt request. Plan of Care PT Services Indicated No
== END 2023-08-30 16:13 | disposition home or self-care (01) ==
LOC: ANHGOSHPT 10:00
DX: M54.50 Low back pain, unspecified (principal); G89.29 Other chronic pain
CPT/HCPCS: 97110; 97140; 97161; 97530

== ENCOUNTER 2023-08-30 10:46 | Outpatient (CLI) | payer OTHER, SELFPAY ==
[2023-08-30 12:39] LABS: Parathyroid Intact 18.8 pg/mL (7.5-53.5)
[2023-08-30 12:58] LABS: Vitamin D 25 Hydroxy 68.1 ng/mL
[2023-08-30 12:59] LABS: Thyroid Stimulating Hormone 0.673 uIU/mL (0.465-4.680)
[2023-09-01 16:26] LABS: Ionized Calcium 5.2 mg/dL (4.7-5.5)
[2023-09-01 17:22] LABS: Immunoglobulin A 136 mg/dL (47-310); TTG IGA AB <1.0 U/mL (<15.0)
[2023-09-02 04:25] LABS: Thyroid Peroxidase Antibodies 1 IU/mL (<9)
[2023-09-02 05:51] LABS: Prolactin 4.1 ng/mL (***)
== END 2023-08-30 10:47 | disposition home or self-care (01) ==
LOC: ANHGOSHLAB 10:49
PROVIDERS: PCP Family Medicine; Visit Provider Internal Medicine
DX: M85.80 Other specified disorders of bone density and structure, unspecified site (principal)
CPT/HCPCS: 36415; 82306; 82330; 82784; 83970; 84146; 84439; 84443; 86364; 86376

== ENCOUNTER 2023-09-14 08:46 | Outpatient (NON) | payer OTHER, SELFPAY ==
[2023-09-14 14:43] LABS: Total Volume 24 Hour Urine 1500 ml
[2023-09-14 15:16] LABS: Creatinine 24 Hour Urine 1.5 gm/24 (0.8-1.8); Creatinine Urine 103.6 mg/dL
[2023-09-19 07:12] LABS: Total Volume 1500 mL; Urine Calcium 17.9 mg/dL
[2023-09-19 07:17] LABS: Albumin 24 Hr Urine 29 %; Creatinine, 24 Hr Urine 1.55 g/24 h (0.50-2.15); Total Protein/Creatinine Ratio 78 mg/g creat (<150)
== END 2023-09-14 08:47 | disposition home or self-care (01) ==
LOC: ANHGOSHLAB 08:47
PROVIDERS: PCP Family Medicine; Visit Provider Internal Medicine
DX: M85.80 Other specified disorders of bone density and structure, unspecified site (principal)
CPT/HCPCS: 81050; 82340; 82570; 84156; 84166

== ENCOUNTER 2024-02-08 17:13 | Outpatient (CLI) | payer OTHER, SELFPAY ==
[2024-02-09 21:44] LABS: Progesterone 14.1 ng/mL
[2024-02-09 22:08] LABS: FSH 6.8 mIU/mL; LH 4.2 mIU/mL
[2024-02-12 20:03] LABS: Estradiol, Ultrasensitive 102 pg/mL
== END 2024-02-08 17:14 | disposition home or self-care (01) ==
LOC: ANHLAB 17:15
PROVIDERS: PCP Family Medicine; Visit Provider Obstetrics & Gynecology
DX: R23.2 Flushing (principal)
CPT/HCPCS: 36415; 82670; 83001; 83002; 84144

== ENCOUNTER 2024-04-18 09:46 | Outpatient (CLI) | payer OTHER, SELFPAY ==
[2024-04-18 10:19] LABS: Hematocrit 39.5 % (37.0-47.0); Hemoglobin 13.1 g/dL (12.0-15.0); Mean Corpuscular HGB Conc 33.2 g/dl (32-36); Mean Corpuscular Hemoglobin 29.3 pg (26-34); Mean Corpuscular Volume 88.4 fl (80-100); Mean Platelet Volume 10.6 fl (7.4-10.4); Platelet Count Result 183 k/mm3 (150-375); Red Blood Count 4.47 M/mm3 (4.2-5.4); Red Cell Distribution Width 12.7 % (11.5-14.5); White Blood Count 5.2 K/mm3 (4.5-10.0)
[2024-04-18 10:36] LABS: Alanine Aminotransferase 19 U/L (6-35); Albumin Level 4.3 g/dL (3.5-5.1); Alkaline Phosphatase 46 U/L (38-126); Anion Gap 8 mmol/L (4-12); Aspartate Amino Transferase 22 U/L (14-36); Blood Urea Nitrogen 17 mg/dL (7-17); Calcium 8.9 mg/dL (8.4-10.2); Carbon Dioxide 28 mmol/L (22-30); Chloride 102 mmol/L (98-107); Cholesterol 163 mg/dL (0-200); Estimated Glomerular Filt Rate > 60; Glucose 90 mg/dL (65-110); HDL Direct 53 mg/dL; Potassium 3.9 mmol/L (3.4-5.0); Sodium 138 mmol/L (137-145); Triglycerides 66 mg/dL (<150)
[2024-04-18 10:46] LABS: LDL Cholesterol Direct 97 mg/dL
== END 2024-04-18 09:47 | disposition home or self-care (01) ==
PROVIDERS: PCP Family Medicine; Visit Provider Family Medicine
DX: E66.3 Overweight (principal); Z79.899 Other long term (current) drug therapy
CPT/HCPCS: 36415; 80053; 80061; 85027

== ENCOUNTER 2024-05-31 07:30 | Outpatient (CLI) | payer OTHER, SELFPAY ==
[2024-05-31 08:21] LABS: Alanine Aminotransferase 18 U/L (6-35); Albumin Level 4.2 g/dL (3.5-5.1); Alkaline Phosphatase 48 U/L (38-126); Anion Gap 9 mmol/L (4-12); Aspartate Amino Transferase 23 U/L (14-36); Bilirubin,Total 0.5 mg/dL (0.2-1.3); Blood Urea Nitrogen 25 mg/dL (7-17); CRP < 0.5 mg/dL (<1.0); Calcium 8.6 mg/dL (8.4-10.2); Carbon Dioxide 25 mmol/L (22-30); Chloride 104 mmol/L (98-107); Cholesterol 160 mg/dL (0-200); Estimated Glomerular Filt Rate > 60; Glucose 93 mg/dL (65-110); HDL Direct 51 mg/dL; Potassium 3.9 mmol/L (3.4-5.0); Sodium 138 mmol/L (137-145); Triglycerides 54 mg/dL (<150); Uric Acid 3.7 mg/dL (2.5-7.5)
[2024-05-31 08:30] LABS: LDL Cholesterol Direct 91 mg/dL
[2024-05-31 08:36] LABS: T4 Thyroxine 9.64 ug/dL (5.53-11.0)
[2024-05-31 08:42] LABS: Hemoglobin A1C 4.8 % (<5.7)
[2024-05-31 08:50] LABS: Total Triiodothyronine (T3) 1.21 NG/ML (0.97-1.69)
[2024-05-31 09:01] LABS: Free T4 Free Thyroxine 1.18 ng/mL (0.78-2.19)
[2024-05-31 09:25] LABS: Folic Acid 10.2 ng/mL (2.76->20)
[2024-05-31 09:34] LABS: Basophils Percent Auto 0.2 % (0.2-1.2); Eosinophils Absolute Auto 0.1 K/mm3 (0-0.3); Eosinophils Percent Auto 2.5 % (0-4.4); Hematocrit 38.9 % (37.0-47.0); Hemoglobin 12.9 g/dL (12.0-15.0); Immature Granulocyte Absolute 0.01 K/mm3 (0.00-0.031); Immature Granulocyte Percent A 0.2 % (0-0.5); Lymphocytes Absolute Auto 1.35 K/mm3 (0.9-3.2); Mean Corpuscular HGB Conc 33.2 g/dl (32-36); Mean Corpuscular Hemoglobin 29.6 pg (26-34); Mean Corpuscular Volume 89.2 fl (80-100); Mean Platelet Volume 11.1 fl (7.4-10.4); Monocytes Absolute Auto 0.2 K/mm3 (0.1-0.6); Monocytes Percent Auto 5.3 % (2.6-8.5); Neutrophils Absolute Auto 2.7 K/mm3 (1.3-6.7); Neutrophils Percent Auto 60.8 % (45.5-73.1); Platelet Count Result 201 k/mm3 (150-375); Red Blood Count 4.36 M/mm3 (4.2-5.4); Red Cell Distribution Width 13.2 % (11.5-14.5); White Blood Count 4.4 K/mm3 (4.5-10.0)
[2024-06-01 14:29] LABS: Insulin Level Total 9.5 uIU/mL
[2024-06-02 04:19] LABS: DHEA-Sulfate 64 mcg/dL (5-167); FSH 29.8 mIU/mL; LH 8.2 mIU/mL; Progesterone <0.5 ng/mL; Prolactin 10.7 ng/mL; Triiodothyronine T3 Free 3.5 pg/mL (2.3-4.2)
[2024-06-02 13:53] LABS: Lipoprotein A 36 nmol/L
[2024-06-07 00:59] LABS: Estradiol, Ultrasensitive 27 pg/mL
[2024-06-08 13:30] LABS: GGT 11 U/L (3-70)
[2024-06-08 14:28] LABS: Thyroid Peroxidase Antibodies 2 IU/mL (<9)
[2024-06-09 20:38] LABS: Testosterone Free 1.1 pg/mL (0.1-6.4); Testosterone Total 12 ng/dL (2-45)
[2024-06-10 17:32] LABS: ApoE Isoforms Plasma E3/E3
[2024-06-11 15:12] LABS: T3 Reverse 14 ng/dL (8-25)
== END 2024-05-31 07:31 | disposition home or self-care (01) ==
LOC: ANHLAB 07:32
PROVIDERS: PCP Family Medicine; Visit Provider Chiropractor
DX: Z00.01 Encounter for general adult medical examination with abnormal findings (principal); E56.8 Deficiency of other vitamins; N95.1 Menopausal and female climacteric states; R53.83 Other fatigue; E83.42 Hypomagnesemia
CPT/HCPCS: 36415; 80053; 80061; 82306; 82533; 82607; 82627; 82670; 82746; 82977; 83001; 83002; 83036; 83090; 83525; 83695; 83735; 84144; 84146; 84402; 84403; 84436; 84439; 84443; 84480; 84481; 84482; 84550; 85025; 86140; 86376; 86800

== ENCOUNTER 2024-09-04 10:01 | Outpatient (CLI) | payer OTHER, SELFPAY ==
[2024-09-05 12:29] LABS: FSH 9.3 mIU/mL; Progesterone 6.7 ng/mL; Sex Hormone Binding Globulin 79 nmol/L (17-124)
[2024-09-10 07:58] LABS: Testosterone Free 3 pg/mL (0.1-6.4); Testosterone Total 38 ng/dL (2-45)
[2024-09-11 07:13] LABS: Estriol <0.10 ng/mL
== END 2024-09-04 10:02 | disposition home or self-care (01) ==
LOC: ANHGOSHLAB 10:05
PROVIDERS: PCP Family Medicine
DX: N95.1 Menopausal and female climacteric states (principal)
CPT/HCPCS: 36415; 82677; 83001; 84144; 84270; 84402; 84403

== ENCOUNTER 2024-09-21 15:05 | Outpatient (CLI) | payer OTHER, SELFPAY ==
--- NOTE | ~2024-09-21 | MM_ITS ---
EXAMINATION: MM screening yoav BI w omayra HISTORY: Screening TECHNIQUE: Craniocaudal and mediolateral oblique 3-D tomosynthesis images were obtained and synthetic 2-D images were generated. CAD analysis was submitted and interpreted. COMPARISON: Comparison to multiple prior studies sequentially, with oldest reviewed study dated 11/2015. BREAST PARENCHYMAL COMPOSITION: Not dense: There are scattered areas of fibroglandular density. FINDINGS: There is no evidence of suspicious mass, calcification, or architectural distortion to sugg est malignancy in either breast. There has been no suspicious interval change. IMPRESSION: 1. No mammographic evidence of malignancy. 2. Recommend routine screening mammography in one year. BI-RADS Category 1: Negative Reviewed, dictated and finalized at location B. [employer]
== END 2024-09-21 15:06 | disposition home or self-care (01) ==
LOC: ANHIMG 15:06
PROVIDERS: PCP Family Medicine; Visit Provider Obstetrics & Gynecology
DX: Z12.31 Encounter for screening mammogram for malignant neoplasm of breast (principal)
CPT/HCPCS: 77063; 77067

== ENCOUNTER 2024-12-21 10:34 | Outpatient (CLI) | payer OTHER, SELFPAY ==
--- OUTSIDE RECORDS SUMMARY | 2024-12-21 11:21 | XMS_ITS | Encounter Summary ---
Author Organization [facility] Address [address] [place] [address] Care Team Providers Care Appraisal Specialist Name Role Phone Merly Rush MD Primary Care Provider [phone] Luis Pandya MD Unavailable [phone] Encounter Details Date Type Department Care Team (Late st Contact Info) Description 10/11/2018 Abstract [facility], [facility] [address] [place] [address] Sherie Sainz MA Social History Tobacco Use Types Packs/Day Years Used Date Smoking Tobacco: Never Smokeless Tobacco: Never Alcohol Use Standard Drinks/Week Comments Yes 1.7 (1 standard drink = 0.6 oz p ure alcohol) AUDIT-C Answer Date Recorded Frequency of Alcohol Consumption 2-4 times a wed09/29/2018 Average Number of Drinks Not on file 018 Frequency of Binge Drinking Not on file 09/04 Comments Unknown Sex and Gender Information Value Date Recorded Sex Assigned at Not on file Legal Sex Female 6:07 PM CDT Gender Identity Not on file Sexual Orientation Not on file 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 AMER. >90 <=90 EGFR NON-AFR. AMER. >90 <=90 ALKALINE PHOSPHATASE S/P/B 56 ALT 25 AST 22 BILIRUBIN TOTAL S/P/B 0.5 ALBUMIN S/P/B 3.9 3.5 - 5.0 TOTAL PROTEIN S/P/B 7.5 09/18/2018 us Doc [facility] Abstract LABORATORY Final Result * CBC (OUTSIDE LAB) (09/18/2018) Pathologist [facility] WBC 7.7 HGB 12.7 HCT 37.6 PLT 191 09/18/2018 us Doc [facility] Abstract LAB-OUTSIDE/ABSTRACTED Final Result documented in this encounter Visit Diagnoses Not on filedocumented in this encounter Care Teams Appraisal Specialist Relationship Specialty Start Date End Date Merly Rush MD [address] [place] [address] [place] [address] PCP - General FAMILY PRACTICE 09/20/18 Luis Pandya MD [facility] [address] [place] [address] Marcella Ship Worker CARDIOVASCULAR DISEASE 09/20/18 documented as of this encounter
--- OUTSIDE RECORDS SUMMARY | 2024-12-21 11:21 | XMS_ITS | Clinical Summary ---
Author Organization [facility] Address [address] [place] [address] Care Team Providers Care Car Tracer Name Role Phone Jasmina Chase Primary Care Provider [phone] Allergies No known active allergies Medications buPROPion XL (WELLBUTRIN XL) 150 mg 24 hr tablet Take 1 tablet (150 mg total) by mouth daily 3 Active calcium carbonate (CALTRATE 600 ORAL) 3 Active cyclobenzaprine (FLEXERIL) 5 mg tablet Take 1 tablet(s) 3 TIMES A DAY as needed Active docusate sodium (COLACE) 250 mg capsule 3 Active escitalopram (LEXAPRO) 20 mg tablet Active estradioL (ESTRACE) 0.01 % (0.1 mg/gram) vaginal cream USE 1 GRAM VAGINALLY 3 TIMES A WEEK Active bhavna Wynn i,david,ricci (AZO COMPLETE FEMININE BALANCE ORAL) 3 Active meclizine (ANTIVERT) 25 mg tablet Active metroNIDAZOLE (METROGEL) 0.75 % (37.5mg/5 gram) vaginal gel Active nitrofurantoin monohydrate (MACROBID) 100 mg capsule TAKE 1 CAPSULE BY MOUTH EVERY 12 HOURS FOR 5 DAYS Active Junel 10/23, , 1-20 mg-mcg per tablet 3 Active meloxicam (MOBIC) 15 mg tabletIndication s:Chronic bilateral low back pain without sciatica TAKE 1 TABLET BY MOUTH DAILY 90 tablet 3 4 Active Active Problems No known active problems Surgical History Surgery Date Site/Laterality Comments TUBAL LIGATION 2004 BLADDER SURGERY 2005 Medical History Medical History Date Comments Anxiety Arthritis Depression Thyroid disease Family History Medical History Relation Name Comments Alcohol abuse Father Lamine Brand Arthritis Father Lamine Brand Alcohol abuse Maternal Grandfather Damion Long Cancer Maternal Grandfather Damion Long Heart disease Maternal Grandmother Tayla Park Hypertension Maternal Grandmother Tayla Park Stroke Maternal Grandmother Tayla Park Arthritis Mother Xochitl Epi Hypertension Mother Mammaria isabel Shahmon Stroke Mother Mammaria isabel Epi Diabetes Mother's Brother Praneeth Long Cancer Mother's Sister Amira Long Heart disease Paternal Grandmother Melissa Brand Relation Name Status Comments Father Lamine Brand Maternal Grandfather Damion Park Maternal Grandmother Tayla Long Mother Xochitl Epi Mother's Brother Praneeth Long Mother's Sister Amira Long Paternal Grandmother Melissa Brand Social History Tobacco Use Types Packs/Day Years Used Date Smoking Tobacco: Never Tobacco Cessation:Counseling Given: Not Answered Personal Safety Answer Date Recorded Getting School Help Needed Not on file 10/05 Comments Unknown Sex and Gender Information Value Date Recorded Sex Assigned at Not on file 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 Gender Identity Not on file Sexual Orientation Not on file Obstetrics History Plan of Treatment Health Maintenance Due Date Last Done Comments Breast Cancer Screening-Mammogram 1970 Cervical Cancer Screening 1970 Colon Cancer Screening-Colonoscopy 1970 Depression Screening 1970 Hepatitis C Screening 1970 DTaP/Tdap/Td Vaccine (1 - Tdap) 1981 Hepatitis B Screening 1988 Regular Well Visit/Exam 18-64 1988 Zoster Vaccine (1 of 2) 2020 Covid-19 Vaccine ( season) 2024 02/23/2022, 07/11/2021, 10/29/2020, Additional history exists Influenza Vaccine (#1) 2024 07/19/2017 Pneumococcal vaccine <65 Aged Out No longer eligible based on patient's age to complete this topic Insurance [facility] H[facility]/PPO Address: [id number] [place] [address] Care Teams Car Tracer Relationship Specialty Start Date End Date Jasmina Chase PA [address] [place] [address] PCP - General 02/19/23
--- OUTSIDE RECORDS SUMMARY | 2024-12-21 11:21 | XMS_ITS | Clinical Summary ---
Author Organization [facility] Address [facility] [place] [address] Care Team Providers Care Mat Sewer Name Role Phone Merly Rush MD Primary Care Provider [phone] Luis Pandya MD Unavailable [phone] Allergies No known active allergies Medications buPROPion 24 hr 300 MG 24 hr tablet Take 1 tablet by mouth daily. 08/25/2018 Active Apple Agus Vn-Grn Tea-Bit Or-Cr (APPLE CIDER VINEGAR PLUS) Tab Take 1 tablet by mouth 2 (two) times daily. 09/21/2018 Active ALPRAZolam 0.5 MG tablet TK 1 T PO TID PRN 0 09/23/2018 Active Active Problems Problem Noted Date Diagnosed Date Chest pain 10/13/2018 Family History Medical History Relation Comments Stroke Maternal Grandmother Stroke Paternal Grandfather Relation Status Comments Brother Alive Father Alive Maternal Grandfather Maternal Grandmother Mother Alive Paternal Grandfather Paternal Grandmother Sister Alive Social History Tobacco Use Types Packs/Day Years [...] Not on file Not o n file Last Filed Vital Signs Vital Sign Reading Time Taken Comments Blood Pressure 114/62 04/19/2019 8:29 AM CDT Pulse 93 04/19/2019 8:29 AM CDT Temperature - - Respiratory Rate - - Oxygen Saturation 98% 04/19/2019 8:29 AM CDT Inhaled Oxygen Concentration - - Weight 73.6 kg (162 lb 3.2 oz) 04/19/2019 8:29 A M CDT Height 162.6 cm (5' 4 ) 04/19/2019 8:29 AM CDT Body Mass Index 27.84 04/19/2019 8:29 AM CDT Plan of Treatment Health Maintenance Due Date Last Done Comments Cervical Cancer Screening Pa p Smear (Age 30 to 64) Every 3 Years 1970 Colorectal Cancer Screening Colonoscopy (10 Years) 1970 Annual Physical 1973 Hepatitis C 1988 DTaP, Tdap and Td Vaccines ( 1 - Tdap) 1989 Hepatitis B Vaccines (1 of 3 - 19+ 3-dose series) 1989 Cervical Cancer Screening Pa p with HPV Testing (Age 30 to 64) Every 5 Years 2000 Cervical Cancer Screening with HPV 2000 Mammogram Screening 2010 Zoster Vaccines (1 of 2) 2020 COVID-19 Vaccine (2023-2 5 season) 2024 Influenza Adult (#1) 2024 07/19/2017 Meningococcal B Vaccine Aged Out No l onger eligible based on patient's age to complete this topic Meningococcal Vaccine Aged Out No evette amna eligible based on patient's age to complete this topic Pneumococcal Vaccine: Pediat rics (0 to 5 Years) and At-Risk Patients (6 to 64 Years) Aged Out No longer eligi ble based on patient's age to complete this topic RSV Immunizations Under 20 Months Aged Out No longer eligible based on patient's age to complete this topic Insurance [facility] Care Teams Mat Sewer Relationship Specialty Start Date End Date Merly Rush MD [address] [place] [address] [place] [address] PCP - General FAMILY PRACTICE 09/20/18 Luis Pandya MD [facility]. [address] [place] [address] Keno Sanitation Officer CARDIOVASCULAR DISEASE 09/20/18
--- OUTSIDE RECORDS SUMMARY | 2024-12-21 11:21 | XMS_ITS | Clinical Summary ---
Author Organization [facility] Address [address] [facility] [place] [address] Care Team Providers Care Tool Planer Set Up Operator Name Role Phone Unavailable Primary Care Provider Unavailabl e Source Comments [facility],non-owned Affiliates and Associated Physician Practices is amultiple site organization consisting of ambulatory clinics and hospital sitesin [place]. This disclosure is being madepursuant to the Care Everywhere program and may not contain all information available regarding this patient. Last updated 18.[facility] Allergies No known active allergies Immunizations Name Administration Dates Next Due INFLUENZA VACCINE, QUADR. (F LUZONE; FLULAVAL; FLUARIX; AFLURIA QUADRIVALENT; 6MO+), 0.5 ML (IIV4) 07/19/2017 Social History Tobacco Use Types Packs/Day Years Used Date Smoking Tobacco: Never Assessed Sex and Gender Information Value Date Recorded Sex Assigned at Not on file Gender Identity Not on file Sexual Orientation Not on file Plan of Treatment Health Maintenance Due Date Last Done Comments COLOGUARD (AGES 45-75) - COL ON CA SCREENING 1970 COLON MONITORING 1970 COLONOSCOPY - COLON CA SCREENING 1970 CT COLONOGRAPHY - COLON CA SCREENING 1970 Colorectal Cancer Screening 1970 FIT - COLON CA SCREENING 1970 FLEX SIG - COLON CA SCREENING 1970 LIPID TESTING 1970 MAMMOGRAM 1970 PAP SMEAR 1970 HIV SCREENING 1985 HEPATITIS C SCREENING 10/14/1988 DTAP/TDAP/TD VACCINES (1 - Tdap) 1989 HEPATITIS B VACCINE (1 of 3 - 19+ 3-dose series) 1989 PNEUMOCOCCAL VACCINE 50+ (1 of 1 - PCV) 2020 ZOSTER VACCINE (1 of 2) 2020 COVID-19 VACCINE (1 - 2023-2 5 season) 2024 INFLUENZA VACCINE (#1) 2024 07/19/2017 DEPRESSION SCREENING 10/04/2024 HIB VACCINE Aged Out No longer eligi ble based on patient's age to complete this topic HPV VACCINE Aged Out No longer eligi ble based on patient's age to complete this topic MENINGOCOCCAL (Group B) VACC INE SHARED DECISION-MAKING Aged Out No longer eligibl e based on patient's age to complete this topic MENINGOCOCCAL GROUPS A/C/Y/W VACCINE Aged Out No longer eligible b ased on patient's age to complete this topic PNEUMOCOCCAL VACCINE Aged Out No long er eligible based on patient's age to complete this topic
--- OUTSIDE RECORDS SUMMARY | 2024-12-21 11:21 | XMS_ITS | Data Portability ---
Author Organization ID - [facility] [employer], Main Office Address [address] [place] [address] Assessment No assessment recorded. Plan of Treatment Reminders Order Date Submit Date Provider Last Modified By Organization Details Last Modified Time Details Appointments None recorded. Lab None recorded. Referral orthopedic spine surgeon referral - Please call the patient to make an appt. Thank you [email or web address] [facility] [address] [facility], [facility] [place], [address], 3 15:39:30 Procedures None recorded. Surgeries None recorded. Imaging None recorded. Medication Orders prednisone 20 mg tablet 2022 023 [id number], [address] [place], [place], [id number], 3 11:29:29 Patient TargetsNo targets recorded. Patient InstructionsNo instructions recorded. Reason for Referral Orthopedic Spine Surgeon Ref erral for Low back pain Please call the patient to make an appt. Thank you Referring Physician: Jasmina Chase, Family Medicine, Encounter Date: 02/19/2023 Results Created Date Observation Date Name Description Value Unit Range Abnormal Flag Note LastModifiedBy Organization Detail LastModifiedTime 09/08/20 22 09/10/2022 ESTRA DIOL estradiol 98.0 pg/mL Adult Femal e: Folli cular phase 12.5 - 166.0 Ovula tion phase 85.8 - 498.0 Lutea l phase 43.8 - 211.0 Postm enopa usal <6.0 - 54.7 Pregn harsha 1st trime ster 215.0 - >4300 .0 Debra ECLIA metho dolog y Perfo rmed at: [facility] [address] [place] [address] Lab Direc tor: Juan A martinez PhD, Phone : [phone] Not Available [facility] (Lab) [address] [place] [address], [address], 09/10/2022 09:12:57 09/08/20 22 09/10/2022 LH/ARIC TEINI ZING HORMO NE LH - [facility] 17.6 mIU/m L Adult Femal e: Folli cular phase 2.4 - 12.6 Ovula tion phase 14.0 - 95.6 Lutea l phase 1.0 - 11.4 Postm enopa usal 7.7 - 58.5 Perfo rmed at: [facility] [address] [place], [place] [id number] Lab Direc tor: Juan A martinez PhD, Phone : [phone] Not Available Not Available 09/10/2022 09:12:56 09/08/20 22 09/10/2022 PROGE STERO NE progesterone 0.8 NG/mL Folli cular phase 0.1 - 0.9 Lutea l phase 1.8 - 23.9 Ovula tion phase 0.1 - 12.0 Pregn ant First trime ster 11.0 - 44.3 Secon d trime ster 25.4 - 83.3 Third trime ster 58.7 - 214.0 Postm enopa usal 0.0 - 0.1 Perfo rmed at: [facility] [address] [place], [place] [id number] Lab Direc tor: Juan A martinez PhD, Phone : [phone] Not Available [facility] (Lab) [address] [place] [address], [address], 09/10/2022 09:12:54 09/08/20 22 09/10/2022 FSH/F OLLIC LE STIMU LAT. HORMO NE FSH - [facility] 21.2 mIU/m L Adult Femal e: Folli cular phase 3.5 - 12.5 Ovula tion phase 4.7 - 21.5 Lutea l phase 1.7 - 7.7 Postm enopa usal 25.8 - 134.8 Perfo rmed at: [facility] [address] [facility] [address], [facility] [place] [address] [facility] Lab Dire tor: Juan A martinez PhD, Phone : [phone] Not Available Not Available 09/10/2022 08:14:20 09/08/20 22 09/08/2022 CULTU RE URINE urc ===== ===== ===== ===== ===== ===== ===== ===== ===== ===== ===== ===== ===== ===== ===== ===== ===== ===== ===== ===== ===== ===== ===== ===== CULTU RE NO.: [id number] Exam Statu s: Final Exam Type: CULTU RE URINE ===== ===== ===== ===== ===== ===== ===== ===== ===== ===== ===== ===== ===== ===== ===== ===== ===== ===== ===== ===== ===== ===== ===== ===== Cultu re Repor t: Organ ism #01 Esche jesse a coli (escc ol) Antib iotic s escco l Achie vable Achie vable (01) Dosag e Serum Level Urine Level mcg/m l mcg/m l Lily katie <=2 S 021A Ampic illin <=2 S 021A Ampic illin /Sulb actam <=2 S 021A Cefaz radha <=4 S 021A Cefep antoinette <=1 S 021A Cefox itin <=4 S 021A Ceftr iaxon e <=1 S 021A Cipro floxa katie <=0.2 5 S 021A ESBL NEG - 021A Genta micin <=1 S 021A Levof loxac in <=0.1 2 S 021A Merop enem <=0.2 5 S 021A Piper acill in./T azaba <=4 S 021A Tobra mycin <=1 S 021A Trmet hopri m.Sul fa <=20 S 021A rt - Test Card Code AST-G N 021A o2 - Final Organ ism ESCHE R 021A af - Antib iotic Fami TRIME T 021A af - Antib iotic Famil y Na ap - Pheno type Name WILD 021A ap - Pheno type Name Not Available [facility] (Lab) [address] [place], [address], 09/10/2022 08:01:26 09/08/20 22 09/08/2022 URINA LYSIS COMPL ETE/I RIS W/RFX color dark-y ellow Not Available [facility] (Lab) [address] [place], [address], 09/08/2022 22:48:35 09/08/20 22 09/08/2022 URINA LYSIS COMPL ETE/I RIS W/RFX appear extra turbid abnormal Not Available [facility] (Lab) [address] [place], [address], 09/08/2022 22:48:35 09/08/20 22 09/08/2022 URINA LYSIS COMPL ETE/I RIS W/RFX specific gravity 1.028 1.001- 1.030 Not Available [facility] (Lab) [address] [place], [address], 09/08/2022 22:48:35 09/08/20 22 09/08/2022 URINA LYSIS COMPL ETE/I RIS W/RFX pH 6.0 pH_un its 5.0-9. 0 Not Available [facility] (Lab) [address] [place], [address], 09/08/2022 22:48:35 09/08/20 22 09/08/2022 URINA LYSIS COMPL ETE/I RIS W/RFX leukocytes >/=500 zaida/u L negati ve- abnormal Not Available [facility] (Lab) [address] [place], [address], 09/08/2022 22:48:35 09/08/20 22 09/08/2022 URINA LYSIS COMPL ETE/I RIS W/RFX nitrite negati ve negati ve- Not Available [facility] (Lab) [address] [place], [address], 09/08/2022 22:48:35 09/08/20 22 09/08/2022 URINA LYSIS COMPL ETE/I RIS W/RFX protein 300 mg/dL negati ve- abnormal Not Available [facility] (Lab) [address] [place], [address], 09/08/2022 22:48:35 09/08/20 22 09/08/2022 URINA LYSIS COMPL ETE/I RIS W/RFX glucose normal mg/dL normal - Not Available [facility] (Lab) [address] [place], [address], 09/08/2022 22:48:35 09/08/20 22 09/08/2022 URINA LYSIS COMPL ETE/I RIS W/RFX ketones negati ve mg/dL negati ve- Not Available [facility] (Lab) [address] [place], [address], 09/08/2022 22:48:35 09/08/20 22 09/08/2022 URINA LYSIS COMPL ETE/I RIS W/RFX urobilinogen normal mg/dL normal - Not Available [facility] (Lab) [address] [place], [address], 09/08/2022 22:48:35 09/08/20 22 09/08/2022 URINA LYSIS COMPL ETE/I RIS W/RFX bilirubin negati ve mg/dL negati ve- Not Available [facility] (Lab) [address] [place], [address], 09/08/2022 22:48:35 09/08/20 22 09/08/2022 URINA LYSIS COMPL ETE/I RIS W/RFX blood >/=1.0 mg/dL negati ve- abnormal Not Available [facility] (Lab) [address] [place], [address], 09/08/2022 22:48:35 09/08/20 22 09/08/2022 URINA LYSIS COMPL ETE/I RIS W/RFX white blood cells packed /i??h pfi?? 0-8 abnormal Not Available [facility] (Lab) [address] [place], [address], 09/08/2022 22:48:35 09/08/20 22 09/08/2022 URINA LYSIS COMPL ETE/I RIS W/RFX red blood cells packed /i??h pfi?? 0-4 abnormal Not Available [facility] (Lab) [address] [place], [address], 09/08/2022 22:48:35 09/08/20 22 09/08/2022 URINA LYSIS COMPL ETE/I RIS W/RFX bacteria none Not Available [facility] (Lab) [address] [place], [address], 09/08/2022 22:48:35 09/08/20 22 09/08/2022 URINA LYSIS COMPL ETE/I RIS W/RFX mucous many /i??l pfi?? abnormal Not Available [facility] (Lab) [address] [place], [address], 09/08/2022 22:48:35 09/08/20 22 09/08/2022 URINA LYSIS COMPL ETE/I RIS W/RFX squamous epithelial packed field /i??l pfi?? abnormal Not Available [facility] (Lab) [address] [place], [address], 09/08/2022 22:48:35 09/08/20 22 09/08/2022 URINA LYSIS COMPL ETE/I RIS W/RFX calcium oxalate crystal few /i??h pfi?? none seen- abnormal Not Available [facility] (Lab) [address] [place], [address], 09/08/2022 22:48:35 09/08/20 22 09/08/2022 GINI TIN ferritin 21 NG/mL 11.1-2 64 Not Available [facility] (Lab) [address] [place], [address], 09/08/2022 21:56:19 09/08/20 22 09/08/2022 TSH thyroid-stim ulating hormone 0.084 uIU/m L 0.465- 4.680 low Not Available [facility] (Lab) [address] [place], [address], 09/08/2022 21:56:15 09/08/20 22 09/08/2022 IRON/ TIBC PANEL total iron binding capacity 306 mcg/d L 265-47 5 Not Available [facility] (Lab) [address] [place], [address], 09/08/2022 21:40:53 09/08/20 22 09/08/2022 IRON/ TIBC PANEL % transferrin saturation 18 % 20-55 low Not Available [facility] (Lab) [address] [place], [address], 09/08/2022 21:40:53 09/08/20 22 09/08/2022 IRON/ TIBC PANEL unsaturated iron bind capacity 251 mcg/d L 126-38 2 Not Available [facility] (Lab) [address] [place], [address], 09/08/2022 21:40:53 09/08/20 22 09/08/2022 IRON/ TIBC PANEL iron 55 mcg/d L 42-175 Not Available [facility] (Lab) [address] [place], [address], 09/08/2022 21:40:53 09/08/20 22 09/08/2022 CBC/C OMPLE TE BLD COUNT W/DIF F white blood cells 8.7 x10'3 /uL 4.2-10 .8 Not Available [facility] (Lab) [address] [place], [address], 09/08/2022 21:29:49 09/08/20 22 09/08/2022 CBC/C OMPLE TE BLD COUNT W/DIF F red blood cells 4.13 x10'6 /uL 3.80-5 .20 Not Available [facility] (Lab) [address] [place], [address], 09/08/2022 21:29:49 09/08/20 22 09/08/2022 CBC/C OMPLE TE BLD COUNT W/DIF F hemoglobin 12.1 g/dL 12.0-1 5.6 Not Available [facility] (Lab) [address] [place], [address], 09/08/2022 21:29:49 09/08/20 22 09/08/2022 CBC/C OMPLE TE BLD COUNT W/DIF F hematocrit 37.6 % 35.7-4 5.7 Not Available [facility] (Lab) [address] [place], [address], 09/08/2022 21:29:49 09/08/20 22 09/08/2022 CBC/C OMPLE TE BLD COUNT W/DIF F mean red cell volume 91.0 fL 82.0-9 9.0 Not Available [facility] (Lab) [address] [place], [address], 09/08/2022 21:29:49 09/08/20 22 09/08/2022 CBC/C OMPLE TE BLD COUNT W/DIF F mean red cell hemoglobin 29.3 pg 27.0-3 3.0 Not Available [facility] (Lab) [address] [facility] [place], [address], 09/08/2022 21:29:49 09/08/20 22 09/08/2022 CBC/C OMPLE TE BLD COUNT W/DIF F mean RBC HGB concentratio n 32.2 g/dL 31.0-3 6.0 Not Available [facility] (Lab) [address] [place], [address], 09/08/2022 21:29:49 09/08/20 22 09/08/2022 CBC/C OMPLE TE BLD COUNT W/DIF F red cell distribution width 13.6 % 11.8-1 5.5 Not Available [facility] (Lab) [address] [place], [address], 09/08/2022 21:29:49 09/08/20 22 09/08/2022 CBC/C OMPLE TE BLD COUNT W/DIF F platelets 201 x10'3 /uL 150-40 0 Not Available [facility] (Lab) [address] [place], [address], 09/08/2022 21:29:49 09/08/20 22 09/08/2022 CBC/C OMPLE TE BLD COUNT W/DIF F mean platelet volume 11.4 fL 9.0-12 .4 Not Available [facility] (Lab) [address] [place], [address], 09/08/2022 21:29:49 09/08/20 22 09/08/2022 CBC/C OMPLE TE BLD COUNT W/DIF F neutrophils 83.5 % 39.0-7 2.0 high Not Available [facility] (Lab) [address] [place], [address], 09/08/2022 21:29:49 09/08/20 22 09/08/2022 CBC/C OMPLE TE BLD COUNT W/DIF F lymphocytes 10.5 % 16.0-4 7.0 low Not Available [facility] (Lab) [address] [place], [address], 09/08/2022 21:29:49 09/08/20 22 09/08/2022 CBC/C OMPLE TE BLD COUNT W/DIF F monocytes 4.9 % 5.0-12 .0 low Not Available [facility] (Lab) [address] [place], [address], 09/08/2022 21:29:49 09/08/20 22 09/08/2022 CBC/C OMPLE TE BLD COUNT W/DIF F eosinophils 0.8 % 1.0-7. 0 low Not Available [facility] (Lab) [address] [place], [address], 09/08/2022 21:29:49 09/08/20 22 09/08/2022 CBC/C OMPLE TE BLD COUNT W/DIF F basophils 0.1 % 0.0-2. 0 Not Available [facility] (Lab) [address] [place], [address], 09/08/2022 21:29:49 09/08/20 22 09/08/2022 CBC/C OMPLE TE BLD COUNT W/DIF F immature granulocytes 0.2 % 0.00-0 .50 Not Available [facility] (Lab) [address] [place], [address], 09/08/2022 21:29:49 09/08/20 22 09/08/2022 CBC/C OMPLE TE BLD COUNT W/DIF F neutrophils, absolute count 7.26 x10'3 /uL 1.5-8. 0 Not Available [facility] (Lab) [address] [place], [address], 09/08/2022 21:29:49 09/08/20 22 09/08/2022 CBC/C OMPLE TE BLD COUNT W/DIF F lymphocytes, absolute count 0.91 x10'3 /uL 1.07-3 .43 low Not Available [facility] (Lab) [address] [place], [address], 09/08/2022 21:29:49 09/08/20 22 09/08/2022 CBC/C OMPLE TE BLD COUNT W/DIF F monocytes, absolute count 0.43 x10'3 /uL 0.29-0 .99 Not Available [facility] (Lab) [address] [place], [address], 09/08/2022 21:29:49 09/08/20 22 09/08/2022 CBC/C OMPLE TE BLD COUNT W/DIF F eosinophils, absolute count 0.07 x10'3 /uL 0.02-0 .53 Not Available [facility] (Lab) [address] [place], [address], 09/08/2022 21:29:49 09/08/20 22 09/08/2022 CBC/C OMPLE TE BLD COUNT W/DIF F basophils, absolute count 0.01 x10'3 /uL 0.01-0 .08 Not Available [facility] (Lab) [address] [place], [address], 09/08/2022 21:29:49 09/08/20 22 09/08/2022 CBC/C OMPLE TE BLD COUNT W/DIF F immature granulocytes ,absolute 0.02 x10'3 /uL 0.00-0 .05 Not Available [facility] (Lab) [address] [place], [address], 09/08/2022 21:29:49 09/08/20 22 09/08/2022 CBC/C OMPLE TE BLD COUNT W/DIF F nucleated red blood cells 0.0 % -0 Not Available [facility] (Lab) [address] [place], [address], 09/08/2022 21:29:49 09/08/20 22 09/08/2022 CBC/C OMPLE TE BLD COUNT W/DIF F NRBC# 0.00 x10'3 /uL Not Available [facility] (Lab) [address] [place], [address], 09/08/2022 21:29:49 09/22/20 22 09/23/2022 T4 FREE free T4 1.23 NG/dL 0.78-2 .19 Not Available [facility] (Lab) [address] [place], [address], 09/23/2022 16:15:52 09/22/20 22 09/23/2022 TSH thyroid-stim ulating hormone 0.100 uIU/m L 0.465- 4.680 low Not Available [facility] (Lab) [address] [place], [address], 09/23/2022 16:15:32 03/03/20 23 03/03/2023 CULTU RE URINE urc ===== ===== ===== ===== ===== ===== ===== ===== ===== ===== ===== ===== ===== ===== ===== ===== ===== ===== ===== ===== ===== ===== ===== ===== CULTU RE NO.: [id number] Exam Statu s: Final Exam Type: CULTU RE URINE ===== ===== ===== ===== ===== ===== ===== ===== ===== ===== ===== ===== ===== ===== ===== ===== ===== ===== ===== ===== ===== ===== ===== ===== Cultu re Repor t: Organ ism #01 Esche jesse a coli (escc ol) Antib iotic s escco l Achie vable Achie vable (01) Dosag e Serum Level Urine Level mcg/m l mcg/m l Lily katie <=2 S 021T Ampic illin <=2 S 021T Ampic illin /Sulb actam <=2 S 021T Cefaz radha <=4 S 021T Cefep antoinette <=1 S 021T Cefox itin <=4 S 021T Ceftr iaxon e <=1 S 021T Cipro floxa katie <=0.2 5 S 021T ESBL NEG - 021T Genta micin <=1 S 021T Levof loxac in <=0.1 2 S 021T Merop enem <=0.2 5 S 021T Piper acill in./T azaba <=4 S 021T Tobra mycin <=1 S 021T Trmet hopri m.Sul fa <=20 S 021T rt - Test Card Code AST-G N 021T o2 - Final Organ ism ESCHE R 021T af - Antib iotic Fami TRIME T 021T af - Antib iotic Famil y Na ap - Pheno type Name WILD 021T ap - Pheno type Name Nitro furan toin <=16 S 021T Not Available [facility] (Lab) [address] [place], [address], 03/05/2023 08:28:26 03/16/20 23 03/16/2023 urina lysis , dipst ick Leukocytes (reference range: negative zaida/ l) Modera te Not Available [address], [place], [address], 03/02/2023 18:11:15 03/16/20 23 03/16/2023 urina lysis , dipst ick Nitrite (reference rage: negative mg/dl) positi ve Not Available [address], [place], [address], 03/02/2023 18:11:15 03/16/20 23 03/16/2023 urina lysis , dipst ick Urobilinogen (reference range: 0.2-1 mg/dl) 0.2 Not Available [address], [place], [address], 03/02/2023 18:11:15 03/16/20 23 03/16/2023 urina lysis , dipst ick Protein (reference range: negative mg/dl) Negati ve Not Available [address], [place], [address], 03/02/2023 18:11:15 03/16/20 23 03/16/2023 urina lysis , dipst ick pH (reference range: 5-7) 5.5 Not Available [address], [place], [address], 03/02/2023 18:11:15 03/16/20 23 03/16/2023 urina lysis , dipst ick Blood (reference range: negative Glen/ l) Small Not Available [address], [place], [address], 03/02/2023 18:11:15 03/16/20 23 03/16/2023 urina lysis , dipst ick Specific [place] (reference range: 1.005-1.030) 1.025 Not Available [address], [place], [address], 03/02/2023 18:11:15 03/16/20 23 03/16/2023 urina lysis , dipst ick Ketone (reference range: negative mg/dl) Negati ve Not Available [address], [place], [address], 03/02/2023 18:11:15 03/16/20 23 03/16/2023 urina lysis , dipst ick Bilirubin (reference range: negative mg/dl) Negati ve Not Available [address], [place], [address], 03/02/2023 18:11:15 03/16/20 23 03/16/2023 urina lysis , dipst ick Glucose (reference range: negative mg/dl) Negati ve Not Available [address], [place], [address], 03/02/2023 18:11:15 03/16/20 23 03/16/2023 urina lysis , dipst ick Appearance Cloudy Not Available [address], [place], [address], 03/02/2023 18:11:15 03/16/20 23 03/16/2023 urina lysis , dipst ick Color Dark Yellow Not Available [address], [place], [address], 03/02/2023 18:11:15 12/23/19 23 12/21/2022 US, thyro id No observ ation record ed. [email or web address] [place] [address] [address], [place], [address], 12/23/2022 08:16:40 12/23/19 23 12/21/2022 US, pelvi s No observ ation record ed. [address] [address], [place], [address], 12/23/2022 08:17:00 04/19/20 23 04/19/2023 XR, lumba r spine No observ ation record ed. [email or web address] [address], [place], [address], 04/22/2023 17:50:53 04/19/20 23 04/19/2023 XR, hip + pelvi s, bilat eral No observ ation record ed. [email or web address] [facility] (Imaging) [address] [place] [address], [place], [address], 05/06/2023 11:35:01 05/05/20 23 05/05/2023 MRI, thora cic spine , w/o contr ast No observ ation record ed. [address] [address], [place], [address], 05/12/2023 08:24:40 05/05/20 23 05/05/2023 MRI, lumba r spine , w/o contr ast No observ ation record ed. [email or web address] [address], [place], [address], 05/06/2023 13:02:35 07/14/20 23 07/14/2023 MAMMO , scree esteban, digit al, bilat eral No observ ation record ed. [address], [address], 02/11/2024 10:42:40 Result Notes None recorded. Problems Name Problem SNOMED Code Status Onset Date Resolution Date Notes Provider Name and Address Organization Details Recorded Time Abnormal weight gain 011995750 Active Not Available [employer] 08:57:36 Backache 551827861 Active Not Available [employer] 3 08:57:36 Pain in throat 837293413 Active Not Available [facility] 3 08:57:36 Abdominal pain 42954672 Active Not Available [facility] 3 08:57:36 Shoulder joint pain 665752633 Active Not Available [facility] 3 08:57:36 Vaginitis 48262205 Active Not Available [facility] 3 08:57:37 Knee pain Active Not Available [facility] 3 08:57:37 Depressive disorder 24976912 Active Not Available [facility] 3 08:57:37 Menorrhagi a 513753853 Active Not Available [facility] 3 08:57:37 Vertigo 124708478 Active Not Available [facility] 3 08:57:37 Anxiety 41260520 Active Not Available [facility] 3 08:57:37 Hip pain 74809495 Active Not Available [facility] 3 08:57:37 Carpal tunnel syndrome 99962920 Active Not Available [facility] 3 08:57:37 Low back pain 947520627 Active 2022 BREANNA Joe [address], [address], [place], [address] , [employer]ag [facility] [employer] [facility] 3 11:26:30 Dysuria 69625077 Active 2022 FARA De Santiago [address], [address], [place], [address] , idiag [facility] [employer] [facility] 3 18:11:09 Bilateral hip joint pain 5916468693593 9100 Active 2022 BREANNA Joe [address], [address], [place], [address] , idiag [facility] [employer] [facility] 3 10:54:58 Degenerati on of lumbar interverte bral disc 44340190 Active 2022 Merly Rush MD [address], [address], [place], [address] , [place] [facility] [employer] [facility] 3 17:03:54 Compressio n fracture of thoracic vertebra 8511506616237 Active 2022 Merly Rush MD [address], [facility] [address], [place], [address] , [facility] [place] [employer] [facility] 3 17:04:07 Compressio n fracture of thoracic spine 569339116 Active 2022 Merly Rush MD [address], [facility] [address], [place], [address] , [facility] [place] [employer] [facility] 08:07:47 Problem Notes None recorded. Procedures Surgical History None recorded. Imaging Results Imaging Date Name Status LastModified by Organiz ation Details LastModified Time 12/21/2022 US, thyroid completed [address], [address], 12/23/2022 08:16:40 12/21/2022 US, pelvis completed [address], [address], 12/23/2022 08:17:00 04/19/2023 XR, [email or web address], [address], 04/22/2023 17:50:53 04/19/2023 XR, hip + pelvis, bilateral completed [email or web address] (Imaging) [address] [place] [address], [address], 05/06/2023 11:35:01 05/05/2023 MRI, thoracic spine, w/o contrast completed [address], [address], 05/12/2023 08:24:40 05/05/2023 MRI, lumbar spine, w/o contrast completed [email or web address] [place] [address], [address], 05/06/2023 13:02:35 07/14/2023 MAMMO, screening, digital, bilateral completed [address], [place], [address], 02/11/2024 10:42:40 Procedure Notes None recorded. Medical Equipment None Reported. Allergies No known drug allergies Medications Name Sig Start Date Stop Date Status Note LastModified by Organization Details LastModified Time cyclobenza dana 10 mg tablet active Not Available Not Available No t Available amoxicilli n 500 mg capsule 01/10 completed Not Available Not Available Not Available azithromyc in 250 mg tablet TAKE 2 TABLETS (500 MG) BY ORAL ROUTE ONCE DAILY FOR 1 DAY THEN 1 TABLET (250 MG) BY ORAL ROUTE ONCE DAILY FOR 4 DAYS active Not Available Not Available No t Available ibuprofen 800 mg tablet TAKE 1 TABLET BY MOUTH EVERY 6 HOURS NEEDED FOR PAIN active Not Available Not Available No t Available valacyclov ir 1 gram tablet TAKE 1 TABLET BY MOUTH EVERY 12 HOURS FOR 7 DAYS active Not Available Not Available No t Available hydrocodon e 5 mg-acetami nophen 325 mg tablet TAKE 1 TABLET BY MOUTH EVERY 6 HOURS NEEDED FOR PAIN active Not Available Not Available No t Available meloxicam 15 mg tablet active Not Available Not Available Not Available metronidaz ole 0.75 % (37.5 mg/5 gram) vaginal gel active Not Available Not Available Not Available prednisone 20 mg tablet 3 po qday x 3 days then 2 po qday x 3 days then 1 po qday x 3 days then 1/2 tab po qday x 3 days then stop active Not Available Not Available No t Available Diflucan 150 mg tablet 1 po x 1 07/05 completed Not Available Not Available Not Available penicillin V potassium 500 mg tablet 11/09 completed Not Available Not Available Not Available metronidaz ole 500 mg tablet Take 1 tablet twice a day by oral route for 7 days. active Not Available Not Available No t Available Tamiflu 75 mg capsule Take 1 capsule twice a day by oral route for 5 days. 04/16 completed Not Available Not Available Not Available sulfametho xazole 800 mg-trimeth oprim 160 mg tablet TK 1 T PO Q 12 H FOR 3 DAYS active Not Available Not Available No t Available aspirin 81 mg tablet,del ayed release Take 1 tablet every day by oral route. 05/25 completed Not Available Not Available Not Available Wellbutrin SR 100 mg tablet, 12 hr sustained- release Take 1 tablet twice a day by oral route. 06/22 completed Not Available Not Available Not Available amoxicilli n 500 mg tablet TAKE 1 TABLET BY MOUTH EVERY 6 HOURS UNTIL ALL TAKEN active Not Available Not Available No t Available meloxicam 7.5 mg tablet Take 1 tablet every day by oral route. 04/29 completed Not Available Not Available Not Available oxycodone- acetaminop hen 5 mg-325 mg tablet TAKE 1 TABLET BY MOUTH EVERY 4-6 HOURS NEEDED FOR PAIN active Not Available Not Available No t Available alprazolam 0.5 mg tablet TK 1 T PO TID PRN 05/25 completed Not Available Not Available Not Available amoxicilli n 875 mg tablet Take 1 tablet every 12 hours by oral route for 7 days. 11/09 completed Not Available Not Available Not Available meclizine 25 mg tablet active Not Available Not Available Not Available polymyxin B sulfate 10,000 unit-trime thoprim 1 mg/mL eye drops 04/14 completed Not Available Not Available Not Available diclofenac sodium 75 mg tablet,del ayed release 1 po bid with food prn active Not Available Not Available No t Available estradiol 0.01% (0.1 mg/gram) vaginal cream USE 1 GRAM VAGINALL Y 3 TIMES A WEEK active Not Available Not Available No t Available amoxicilli n 875 mg-potassi um clavulanat e 125 mg tablet 04/29 completed Not Available Not Available Not Available escitalopr am 20 mg tablet active Not Available Not Available Not Available Ortho Tri-Cyclen LO (28) 0.18 mg/0.215 mg/0.25 mg-25 mcg tablet Take 1 tablet every day by oral route. 07/05 completed Not Available Not Available Not Available cyclobenza dana 5 mg tablet Take 1 tablet(s ) 3 TIMES A DAY as needed active Not Available Not Available No t Available 10/23 (21) 1 mg-20 mcg tablet TAKE 1 TABLET BY MOUTH DAILY. SKIPPING PLACEBO WEEK active Not Available Not Available No t Available bupropion HCl XL 300 mg 24 hr tablet, extended release TAKE 1 TABLET BY MOUTH EVERY DAY active Not Available Not Available No t Available bupropion HCl XL 150 mg 24 hr tablet, extended release TAKE 1 TABLET BY MOUTH DAILY active Not Available Not Available No t Available nitrofuran toin monohydrat e/macrocry stals 100 mg capsule TAKE 1 CAPSULE BY MOUTH EVERY 12 HOURS FOR 5 DAYS active Not Available Not Available No t Available estradiol 10 mcg vaginal tablet active Not Available Not Available Not Available Lo Loestrin Fe 1 mg-10 mcg (24)/10 mcg (2) tablet 04/16 completed Not Available Not Available Not Available Brintellix 10 mg tablet Take 1 tablet every day by oral route. 07/05 completed Sample Qty: 20. Not Available Not Available Not Available Fluzone (PF) 45 mcg (15 mcg x 3)/0.5 mL IM syringe TO BE ADMINIST ERED BY PHARMACI ST FOR IMMUNIZA TION 04/16 completed Not Available Not Available Not Available BinaxNOW COVID-19 Ag Self Test kit TEST DIRECTED TODAY 11/03 completed Not Available Not Available Not Available Vitals Date Recorded Body mass index (BMI) Body height Oxygen saturation Oxygen saturation in Arterial blood by Pulse oximetry Heart rate Body temperature Body weight Systolic blood pressure Diastolic blood pressure Provider Name and Address Organization Details Last Updated DateTime 3 25.6 kg/m2 162.56 cm 99 % 99 % 77 /min 96.5 [degF] 37568.2 6 g 100 mm[Hg] 70 mm[Hg] Not Available [facility] 3 08:54:42 Date Recorded Body height Provider Name an d Address Organization Details Last Updated DateTime 09/22/2022 162.56 cm Not Available [facility] 3 08:54:43 Date Recorded Body height Body mass index (BMI) Body weight Body temperature Oxygen saturation Oxygen saturation in Arterial blood by Pulse oximetry Heart rate Systolic blood pressure Diastolic blood pressure Provider Name and Address Organization Details Last Updated DateTime 3 162.56 cm 26.4 kg/m2 56002.2 2 g 97.9 [degF] 99 % 99 % 87 /min 110 mm[Hg] 80 mm[Hg] Vera Chavis CMA [place] [facility] [place] [employer] [facility] 3 11:15:50 Date Recorded Body height Provider Name an d Address Organization Details Last Updated DateTime 03/03/2023 162.56 cm Yaquelin Wise CMA [place] [facility] 03/03/2023 08:52:51 Social History Question Answer Notes LastModified by Organizat ion Details LastModified Time Tobacco Smoking Status Never Smoker Not Available [facility] 12/02/2022 08:53:35 What Is Your Level Of Alcohol Consumption? Occasional [id number] Information not available 12/02/2022 What Is Your Level Of Caffeine Consumption? Occasional [id number] Information not available 12/02/2022 In The 14 Days Before Symptom Onset, Have You Had Close Contact With A Laboratory-confirm ed COVID-19 While That Case Was Ill? No [id number] Information not available 12/02/2022 In The 14 Days Before Symptom Onset, Have You Had Close Contact With A Person Who Is Under Investigation For COVID-19 While That Person Was Ill? No [id number] Information not available 12/02/2022 Have You Ever Been Counseled For Unhealthy Alcohol Use? No [id number] Information not available 12/02/2022 Do You Use Any Illicit Or Recreational Drugs? No [id number] Information not available 12/02/2022 Has Tobacco Cessation Counseling Been Provided? No [id number] Information not available 12/02/2022 Have You Recently Traveled Abroad? No [id number] Information not available 12/02/2022 Do You Or Have You Ever Used Any Other Forms Of Tobacco Or Nicotine? No [id number] Information not available 12/02/2022 Sex: Female Functional Status None recorded. Mental Status None recorded. Family History Nothing Reported Notes:cousin ovarian cancer Medical History No medical history recorded. Gynecological HistoryNo gynecological history recorded. Obstetrics History GPAL:G 0 P 0 0 0 0 Immunizations Vaccine Type Date Status Note Provider Nam e and Address Organization Details Recorded Time tetanus toxoid, unspecified formulation 7 completed Not Available [facility] 12/02/2022 09:00:31 Past Encounters Encounter ID Performer Location Encounter Start Date Encounter Closed Date Diagnosis/Indication Diagnosis SNOMED-CT Code Diagnosis ICD10 Code Diagnosis Note [id number] [facility] [address] [place] [address] 04/29/2021 00:00:00 04/29/2021 19:43:59 [id number] [facility] [place] [address] [place] [address] 06/10/2021 00:00:00 06/10/2021 18:17:47 [id number] [facility] [place] [address] [place] [address] 01/30/2022 00:00:00 01/30/2022 08:57:44 [id number] [facility] [place] [address] [place] [address] 07/08/2022 00:00:00 07/27/2022 21:05:53 [id number] [facility] [place] [address] [place] [address] 09/08/2022 00:00:00 09/08/2022 09:43:01 [id number] [facility] [place] [address] [place] [address] 09/22/2022 00:00:00 09/30/2022 20:43:04 [id number] [facility] [place] [address] [facility] [facility] [address] [place] [address] 11/04/2022 00:00:00 11/04/2022 09:33:22 [id number] BREANNA Joe [facility] [place] [address] [place] [address] 02/19/2023 11:10:45 02/19/2023 11:31:22 Low back pain 453207518 M54.50 Pain mainly across midline low back with radiation into buttocks. Denies any leg pain.She states she is very active and does regular exercise.W ill do course of steroids. She would like to hold off on referral to PT.She is requesting referral to ortho to be evaluated. [id number] FARA De Santiago [facility] [place] [address] [place] [address] 03/03/2023 08:31:18 03/03/2023 08:53:48 Health Concerns Section Related Observation LastModified by Organization Detai ls LastModified Time None Recorded Concern Status LastModified by Organization Details LastModified Time None Recorded Advance Directives Directive None Recorded Payers Encounter Date Sequence Insurance Name Policy Number Policy Alanis Covered Member ID Alanis Member ID Guarantor Name 02/19/2023 1 [facility] [id number] Madeline E Marcos [id number] Madeline E [place] 03/03/2023 1 [facility] [id number] Madeline E Marcos [id number] Madeline E [place] Notes Date Note Type Note Provider Name and Address Organization Details Recorded Time 02/19/2023 text/html Pt. states she has been having trouble with her hips and low back (sacrum). She feels like she has instability. Feels like she can't bend over sometimes. She states most of the pain is in the low back. No radiation down the legs. Has been an ongoing problem for about a year. She has been to PT for for pelvic floor training, but has not done specific PT for this problem. She takes ibuprofen when needed and CBD gummies and ointment. She states once she gets moving it starts to get better. She would like a referral to ortho to be evaluated further. BREANNA Joe [address] [place] [address], [place] [address], [place], [address], [place] [facility] [employer] 02/19/2023 11:52:42 OBGyn Episode No OBEpisode recorded.
--- OUTSIDE RECORDS SUMMARY | 2024-12-21 11:21 | XMS_ITS | Referral Summary ---
Author Organization [facility] Address [address] [place] [address] Care Team Providers Care Icu Clerk Name Role Phone Jasmina Chase Primary Care Provider [phone] Allergies No known active allergies Medications buPROPion [...] 3 TIMES A WEEK Active bhavna Wynn i,david,rhamn (AZO COMPLETE FEMININE BALANCE ORAL) 3 Active [...] Active Active Problems No known active problems Social History Tobacco Use Types Packs/Day Years Used Date Smoking Tobacco: Never Tobacco Cessation:Counseling Given: Not Answered Personal Safety Answer Date Recorded Getting School Help Needed Not on file 10/05 Comments Unknown Sex and Gender Information Value Date Recorded Sex Assigned at Not on file 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
[2024-12-22 08:08] LABS: Progesterone 4.1 ng/mL
[2024-12-22 08:54] LABS: Sex Hormone Binding Globulin 49 nmol/L (17-124)
== END 2024-12-21 10:35 | disposition home or self-care (01) ==
LOC: ANHGOSHLAB 10:35
PROVIDERS: PCP Family Medicine; Visit Provider Chiropractor
DX: N95.1 Menopausal and female climacteric states (principal)
CPT/HCPCS: 36415; 82670; 83001; 84144; 84270; 84402; 84403

== ENCOUNTER 2025-02-15 08:38 | Outpatient (CLI) | payer OTHER, SELFPAY ==
--- NOTE | ~2025-02-15 | XR_ITS ---
Right elbow Technique: AP, oblique, and lateral views were obtained. Clinical History: Pain Findings: No acute fracture or dislocation is seen. Osseous alignment is anatomic. Joint spaces are p reserved. There is no displacement of the fat pads, and soft tissues are unremarkable. Impression: Unremarkable radiographs. Reviewed, dictated and finalized at location . Impression: Unremarkable radiographs.
== END 2025-02-15 08:39 | disposition home or self-care (01) ==
PROVIDERS: PCP Orthopaedic Surgery; Visit Provider Family Medicine
DX: M25.521 Pain in right elbow (principal)
CPT/HCPCS: 73080

== ENCOUNTER 2025-03-03 10:15 | Outpatient (CLI) | payer OTHER, SELFPAY ==
--- OUTSIDE RECORDS SUMMARY | 2025-03-03 10:20 | XMS_ITS | Clinical Summary ---
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
--- OUTSIDE RECORDS SUMMARY | 2025-03-03 10:20 | XMS_ITS | Referral Summary ---
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
--- OUTSIDE RECORDS SUMMARY | 2025-03-03 10:20 | XMS_ITS | Data Portability ---
Author Organization OR - [facility], Main Office Address [address] [place] [address] Assessment No assessment recorded. Plan of Treatment Reminders Order Date Submit Date Provider Last Modified By Organization Details Last Modified Time Details Appointments None recorded. Lab None recorded. Referral orthopedic spine surgeon referral - Please call the patient to make an appt. Thank you [email or web address] [facility], [facility] [place], [address], 3 15:39:30 Procedures None recorded. Surgeries None recorded. Imaging None recorded. Medication Orders prednisone 20 mg tablet 2022 023 [id number], [address] [place], [place], [id number], 3 11:29:29 Patient TargetsNo targets recorded. Patient [...] ECLIA metho dolog y Perfo rmed at: [facility] [address] [place] [address] Lab Direc tor: Juan A martinez PhD, Phone : [phone] Not Available [facility] (Lab) [address] [place] [address], [address], 09/10/2022 09:12:57 09/08/20 22 09/10/2022 LH/ARIC TEINI ZING HORMO NE LH - [facility] 17.6 mIU/m L Adult Femal e: Folli cular phase 2.4 - 12.6 Ovula tion phase 14.0 - 95.6 Lutea l phase 1.0 - 11.4 Postm enopa usal 7.7 - 58.5 Perfo rmed at: [facility] [address] [place], [place] [id number] Lab Direc tor: Juan A martinez PhD, Phone : [phone] Not Available Not Available 09/10/2022 09:12:56 09/08/20 22 09/10/2022 PROGE STERO NE progesterone 0.8 NG/mL Folli cular phase 0.1 - 0.9 Lutea l phase 1.8 - 23.9 Ovula tion phase 0.1 - 12.0 Pregn ant First trime ster 11.0 - 44.3 Secon d trime ster 25.4 - 83.3 Third trime ster 58.7 - 214.0 Postm enopa usal 0.0 - 0.1 Perfo rmed at: [facility] [address] [place], [place] [id number] Lab Direc tor: Juan A martinez PhD, Phone : [phone] Not Available [facility] (Lab) [address] [place] [address], [address], 09/10/2022 09:12:54 09/08/20 22 09/10/2022 FSH/F OLLIC LE STIMU LAT. HORMO NE FSH - [facility] 21.2 mIU/m L Adult Femal e: Folli cular phase 3.5 - 12.5 Ovula tion phase 4.7 - 21.5 Lutea l phase 1.7 - 7.7 Postm enopa usal 25.8 - 134.8 Perfo rmed at: [facility] [address] [facility] [address], [place] [address] [facility]9 Lab Dire tor: Juan A martinez PhD, Phone : [phone] Not Available Not Available 09/10/2022 08:14:20 09/08/20 22 09/08/2022 CULTU RE URINE urc ===== ===== ===== ===== ===== ===== ===== ===== ===== ===== ===== ===== ===== ===== ===== ===== ===== ===== ===== ===== ===== ===== ===== ===== CULTU RE NO.: [id number] Exam Statu s: Final Exam Type: [...] ap - Pheno type Name Not Available [facility] (Lab) [address] [place], [address], 09/10/2022 08:01:26 09/08/20 22 09/08/2022 URINA LYSIS COMPL ETE/I RIS W/RFX color dark-y ellow Not Available [facility] (Lab) [address] [place], [address], 09/08/2022 22:48:35 09/08/20 22 09/08/2022 URINA LYSIS COMPL ETE/I RIS W/RFX appear extra turbid abnormal Not Available [facility] (Lab) [address] [place], [address], 09/08/2022 22:48:35 09/08/20 22 09/08/2022 URINA LYSIS COMPL ETE/I RIS W/RFX specific gravity 1.028 1.001- 1.030 Not Available [facility] (Lab) [address] [place], [address], 09/08/2022 22:48:35 09/08/20 22 09/08/2022 URINA LYSIS COMPL ETE/I RIS W/RFX pH 6.0 pH_un its 5.0-9. 0 Not Available [facility] (Lab) [address] [place], [address], 09/08/2022 22:48:35 09/08/20 22 09/08/2022 URINA LYSIS COMPL ETE/I RIS W/RFX leukocytes >/=500 zaida/u L negati ve- abnormal Not Available [facility] (Lab) [address] [place], [address], 09/08/2022 22:48:35 09/08/20 22 09/08/2022 URINA LYSIS COMPL ETE/I RIS W/RFX nitrite negati ve negati ve- Not Available [facility] (Lab) [address] [place], [address], 09/08/2022 22:48:35 09/08/20 22 09/08/2022 URINA LYSIS COMPL ETE/I RIS W/RFX protein 300 mg/dL negati ve- abnormal Not Available [facility] (Lab) [address] [place], [address], 09/08/2022 22:48:35 09/08/20 22 09/08/2022 URINA LYSIS COMPL ETE/I RIS W/RFX glucose normal mg/dL normal - Not Available [facility] (Lab) [address] [place], [address], 09/08/2022 22:48:35 09/08/20 22 09/08/2022 URINA LYSIS COMPL ETE/I RIS W/RFX ketones negati ve mg/dL negati ve- Not Available [facility] (Lab) [address] [place], [address], 09/08/2022 22:48:35 09/08/20 22 09/08/2022 URINA LYSIS COMPL ETE/I RIS W/RFX urobilinogen normal mg/dL normal - Not Available [facility] (Lab) [address] [facility] [place], [address], 09/08/2022 22:48:35 09/08/20 22 09/08/2022 URINA LYSIS COMPL ETE/I RIS W/RFX bilirubin negati ve mg/dL negati ve- Not Available [facility] (Lab) [address] [place], [address], 09/08/2022 22:48:35 09/08/20 22 09/08/2022 URINA LYSIS COMPL ETE/I RIS W/RFX blood >/=1.0 mg/dL negati ve- abnormal Not Available [facility] (Lab) [address] [place], [address], 09/08/2022 22:48:35 09/08/20 22 09/08/2022 URINA LYSIS COMPL ETE/I RIS W/RFX white blood cells packed /i??h pfi?? 0-8 abnormal Not Available [facility] (Lab) [address] [place], [address], 09/08/2022 22:48:35 09/08/20 22 09/08/2022 URINA LYSIS COMPL ETE/I RIS W/RFX red blood cells packed /i??h pfi?? 0-4 abnormal Not Available [facility] (Lab) [address] [place], [address], 09/08/2022 22:48:35 09/08/20 22 09/08/2022 URINA LYSIS COMPL ETE/I RIS W/RFX bacteria none Not Available [facility] (Lab) [address] [place], [address], 09/08/2022 22:48:35 09/08/20 22 09/08/2022 URINA LYSIS COMPL ETE/I RIS W/RFX mucous many /i??l pfi?? abnormal Not Available [facility] (Lab) [address] [place], [address], 09/08/2022 22:48:35 09/08/20 22 09/08/2022 URINA LYSIS COMPL ETE/I RIS W/RFX squamous epithelial packed field /i??l pfi?? abnormal Not Available [facility] (Lab) [address] [place], [address], 09/08/2022 22:48:35 09/08/20 22 09/08/2022 URINA LYSIS COMPL ETE/I RIS W/RFX calcium oxalate crystal few /i??h pfi?? none seen- abnormal Not Available [facility] (Lab) [address] [place], [address], 09/08/2022 22:48:35 09/08/20 22 09/08/2022 GINI TIN ferritin 21 NG/mL 11.1-2 64 Not Available [facility] (Lab) [address] [place], [address], 09/08/2022 21:56:19 09/08/20 22 09/08/2022 TSH thyroid-stim ulating hormone 0.084 uIU/m L 0.465- 4.680 low Not Available [facility] (Lab) [address] [place], [address], 09/08/2022 21:56:15 09/08/20 22 09/08/2022 IRON/ TIBC PANEL total iron binding capacity 306 mcg/d L 265-47 5 Not Available [facility] (Lab) [address] [place], [address], 09/08/2022 21:40:53 09/08/20 22 09/08/2022 IRON/ TIBC PANEL % transferrin saturation 18 % 20-55 low Not Available [facility] (Lab) [address] [place], [address], 09/08/2022 21:40:53 09/08/20 22 09/08/2022 IRON/ TIBC PANEL unsaturated iron bind capacity 251 mcg/d L 126-38 2 Not Available [facility] (Lab) [address] [place], [address], 09/08/2022 21:40:53 09/08/20 22 09/08/2022 IRON/ TIBC PANEL iron 55 mcg/d L 42-175 Not Available [facility] (Lab) [address] [place], [address], 09/08/2022 21:40:53 09/08/20 22 09/08/2022 CBC/C OMPLE TE BLD COUNT W/DIF F white blood cells 8.7 x10'3 /uL 4.2-10 .8 Not Available [facility] (Lab) [address] [place], [address], 09/08/2022 21:29:49 09/08/20 22 09/08/2022 CBC/C OMPLE TE BLD COUNT W/DIF F red blood cells 4.13 x10'6 /uL 3.80-5 .20 Not Available [facility] (Lab) [address] [place], [address], 09/08/2022 21:29:49 09/08/20 22 09/08/2022 CBC/C OMPLE TE BLD COUNT W/DIF F hemoglobin 12.1 g/dL 12.0-1 5.6 Not Available [facility] (Lab) [address] [place], [address], 09/08/2022 21:29:49 09/08/20 22 09/08/2022 CBC/C OMPLE TE BLD COUNT W/DIF F hematocrit 37.6 % 35.7-4 5.7 Not Available [facility] (Lab) [address] [place], [address], 09/08/2022 21:29:49 09/08/20 22 09/08/2022 CBC/C OMPLE TE BLD COUNT W/DIF F mean red cell volume 91.0 fL 82.0-9 9.0 Not Available [facility] (Lab) [address] [place], [address], 09/08/2022 21:29:49 09/08/20 22 09/08/2022 CBC/C OMPLE TE BLD COUNT W/DIF F mean red cell hemoglobin 29.3 pg 27.0-3 3.0 Not Available [facility] (Lab) [address] [facility] [place], [address], 09/08/2022 21:29:49 09/08/20 22 09/08/2022 CBC/C OMPLE TE BLD COUNT W/DIF F mean RBC HGB concentratio n 32.2 g/dL 31.0-3 6.0 Not Available [facility] (Lab) [address] [place], [address], 09/08/2022 21:29:49 09/08/20 22 09/08/2022 CBC/C OMPLE TE BLD COUNT W/DIF F red cell distribution width 13.6 % 11.8-1 5.5 Not Available [facility] (Lab) [address] [place], [address], 09/08/2022 21:29:49 09/08/20 22 09/08/2022 CBC/C OMPLE TE BLD COUNT W/DIF F platelets 201 x10'3 /uL 150-40 0 Not Available [facility] (Lab) [address] [place], [address], 09/08/2022 21:29:49 09/08/20 22 09/08/2022 CBC/C OMPLE TE BLD COUNT W/DIF F mean platelet volume 11.4 fL 9.0-12 .4 Not Available [facility] (Lab) [address] [place], [address], 09/08/2022 21:29:49 09/08/20 22 09/08/2022 CBC/C OMPLE TE BLD COUNT W/DIF F neutrophils 83.5 % 39.0-7 2.0 high Not Available [facility] (Lab) [address] [place], [address], 09/08/2022 21:29:49 09/08/20 22 09/08/2022 CBC/C OMPLE TE BLD COUNT W/DIF F lymphocytes 10.5 % 16.0-4 7.0 low Not Available [facility] (Lab) [address] [place], [address], 09/08/2022 21:29:49 09/08/20 22 09/08/2022 CBC/C OMPLE TE BLD COUNT W/DIF F monocytes 4.9 % 5.0-12 .0 low Not Available [facility] (Lab) [address] [place], [address], 09/08/2022 21:29:49 09/08/20 22 09/08/2022 CBC/C OMPLE TE BLD COUNT W/DIF F eosinophils 0.8 % 1.0-7. 0 low Not Available [facility] (Lab) [address] [place], [address], 09/08/2022 21:29:49 09/08/20 22 09/08/2022 CBC/C OMPLE TE BLD COUNT W/DIF F basophils 0.1 % 0.0-2. 0 Not Available [facility] (Lab) [address] [place], [address], 09/08/2022 21:29:49 09/08/20 22 09/08/2022 CBC/C OMPLE TE BLD COUNT W/DIF F immature granulocytes 0.2 % 0.00-0 .50 Not Available [facility] (Lab) [address] [place], [address], 09/08/2022 21:29:49 09/08/20 22 09/08/2022 CBC/C OMPLE TE BLD COUNT W/DIF F neutrophils, absolute count 7.26 x10'3 /uL 1.5-8. 0 Not Available [facility] (Lab) [address] [place], [address], 09/08/2022 21:29:49 09/08/20 22 09/08/2022 CBC/C OMPLE TE BLD COUNT W/DIF F lymphocytes, absolute count 0.91 x10'3 /uL 1.07-3 .43 low Not Available [facility] (Lab) [address] [place], [address], 09/08/2022 21:29:49 09/08/20 22 09/08/2022 CBC/C OMPLE TE BLD COUNT W/DIF F monocytes, absolute count 0.43 x10'3 /uL 0.29-0 .99 Not Available [facility] (Lab) [address] [place], [address], 09/08/2022 21:29:49 09/08/20 22 09/08/2022 CBC/C OMPLE TE BLD COUNT W/DIF F eosinophils, absolute count 0.07 x10'3 /uL 0.02-0 .53 Not Available [facility] (Lab) [address] [place], [address], 09/08/2022 21:29:49 09/08/20 22 09/08/2022 CBC/C OMPLE TE BLD COUNT W/DIF F basophils, absolute count 0.01 x10'3 /uL 0.01-0 .08 Not Available [facility] (Lab) [address] [place], [address], 09/08/2022 21:29:49 09/08/20 22 09/08/2022 CBC/C OMPLE TE BLD COUNT W/DIF F immature granulocytes ,absolute 0.02 x10'3 /uL 0.00-0 .05 Not Available [facility] (Lab) [address] [place], [address], 09/08/2022 21:29:49 09/08/20 22 09/08/2022 CBC/C OMPLE TE BLD COUNT W/DIF F nucleated red blood cells 0.0 % -0 Not Available [facility] (Lab) [address] [place], [address], 09/08/2022 21:29:49 09/08/20 22 09/08/2022 CBC/C OMPLE TE BLD COUNT W/DIF F NRBC# 0.00 x10'3 /uL Not Available [facility] (Lab) [address] [place], [address], 09/08/2022 21:29:49 09/22/20 22 09/23/2022 T4 FREE free T4 1.23 NG/dL 0.78-2 .19 Not Available [facility] (Lab) [address] [place], [address], 09/23/2022 16:15:52 09/22/20 22 09/23/2022 TSH thyroid-stim ulating hormone 0.100 uIU/m L 0.465- 4.680 low Not Available [facility] (Lab) [address] [place], [address], 09/23/2022 16:15:32 03/03/20 23 03/03/2023 CULTU RE URINE urc ===== ===== ===== ===== ===== ===== ===== ===== ===== ===== ===== ===== ===== ===== ===== ===== ===== ===== ===== ===== ===== ===== ===== ===== CULTU RE NO.: [id number] 9 Exam Statu s: Final Exam Type: [...] furan toin <=16 S 021T Not Available [facility] (Lab) [address] [place], [address], 03/05/2023 08:28:26 03/16/20 23 03/16/2023 urina lysis , dipst ick Leukocytes (reference range: negative zaida/ l) Modera te Not Available [address], [place], [address], 03/02/2023 18:11:15 03/16/20 23 03/16/2023 urina lysis , dipst ick Nitrite (reference rage: negative mg/dl) positi ve Not Available [address], [place], [address], 03/02/2023 18:11:15 03/16/20 23 03/16/2023 urina lysis , dipst ick Urobilinogen (reference range: 0.2-1 mg/dl) 0.2 Not Available [address], [place], [address], 03/02/2023 18:11:15 03/16/20 23 03/16/2023 urina lysis , dipst ick Protein (reference range: negative mg/dl) Negati ve Not Available [address], [place], [address], 03/02/2023 18:11:15 03/16/20 23 03/16/2023 urina lysis , dipst ick pH (reference range: 5-7) 5.5 Not Available [address], [place], [address], 03/02/2023 18:11:15 03/16/20 23 03/16/2023 urina lysis , dipst ick Blood (reference range: negative Glen/ l) Small Not Available [address], [place], [address], 03/02/2023 18:11:15 03/16/20 23 03/16/2023 urina lysis , dipst ick Specific [place] (reference range: 1.005-1.030) 1.025 Not Available [address], [place], [address], 03/02/2023 18:11:15 03/16/20 23 03/16/2023 urina lysis , dipst ick Ketone (reference range: negative mg/dl) Negati ve Not Available [address], [place], [address], 03/02/2023 18:11:15 03/16/20 23 03/16/2023 urina lysis , dipst ick Bilirubin (reference range: negative mg/dl) Negati ve Not Available [address], [place], [address], 03/02/2023 18:11:15 03/16/20 23 03/16/2023 urina lysis , dipst ick Glucose (reference range: negative mg/dl) Negati ve Not Available [address], [place], [address], 03/02/2023 18:11:15 03/16/20 23 03/16/2023 urina lysis , dipst ick Appearance Cloudy Not Available [address], [place], [address], 03/02/2023 18:11:15 03/16/20 23 03/16/2023 urina lysis , dipst ick Color Dark Yellow Not Available [address], [place], [address], 03/02/2023 18:11:15 12/23/19 23 12/21/2022 US, thyro id No observ ation record ed. [email or web address] [place] [address] [address], [place], [address], 12/23/2022 08:16:40 12/23/19 23 12/21/2022 US, pelvi s No observ ation record ed. [address] [address], [place], [address], 12/23/2022 08:17:00 04/19/20 23 04/19/2023 XR, lumba r spine No observ ation record ed. [email or web address] [address], [place], [address], 04/22/2023 17:50:53 04/19/20 23 04/19/2023 XR, hip + pelvi s, bilat eral No observ ation record ed. [email or web address] [facility] (Imaging) [address] [place] [address], [place], [address], 05/06/2023 11:35:01 05/05/20 23 05/05/2023 MRI, thora cic spine , w/o contr ast No observ ation record ed. [address] [address], [place], [address], 05/12/2023 08:24:40 05/05/20 23 05/05/2023 MRI, lumba r spine , w/o contr ast No observ ation record ed. [email or web address] [address], [place], [address], 05/06/2023 13:02:35 07/14/20 23 07/14/2023 MAMMO , scree esteban, digit al, bilat eral No observ ation record ed. [address], [address], 02/11/2024 10:42:40 Result Notes None recorded. Problems Name Problem SNOMED Code Status Onset Date Resolution Date Notes Provider Name and Address Organization Details Recorded Time Abnormal weight gain 496243627 Active Not Available [facility] 08:57:36 Backache 193273025 Active Not Available [facility] 3 08:57:36 Pain in throat 524056170 Active Not Available [facility] 3 08:57:36 Abdominal pain 57169276 Active Not Available [facility] 3 08:57:36 Shoulder joint pain 718918940 Active Not Available [facility] 3 08:57:36 Vaginitis 02072944 Active Not Available [facility] 3 08:57:37 Knee pain Active Not Available [facility] 3 08:57:37 Depressive disorder 46806030 Active Not Available [facility] 3 08:57:37 Menorrhagi a 006054406 Active Not Available [facility] 3 08:57:37 Vertigo 831544981 Active Not Available [facility] 3 08:57:37 Anxiety 77638893 Active Not Available [facility] 3 08:57:37 Pain of hip region 23579145 Active Not Available [facility] 3 08:57:37 Carpal tunnel syndrome 54878465 Active Not Available [facility] 3 08:57:37 Low back pain 352539845 Active 2022 BREANNA Joe [address], [address], [place], [address] , [facility] 3 11:26:30 Dysuria 13628320 Active 2022 FARA De Santiago [address], [address], [place], [address] , [facility] 3 18:11:09 Pain of bilateral hip joints 9236063007173 9100 Active 2022 BREANNA Joe [address], [address], [place], [address] , [facility] 3 10:54:58 Degenerati on of lumbar interverte bral disc 13097561 Active 2022 Merly Rush MD [address], [address], [place], [address] , [facility] 3 17:03:54 Compressio n fracture of thoracic vertebra 8691513561266 Active 2022 Merly Rush MD [address] [address], [place], [address] , [facility] [address] [facility] 3 17:04:07 Compressio n fracture of thoracic spine 115240289 Active 2022 Merly Rush MD [address] [address], [place], [address] , [facility] [employer] [facility] [address] [facility] 3 08:07:47 Problem Notes None recorded. Medical Equipment None Reported. [...] % 99 % 77 /min 96.5 [degF] 64695.2 6 g 100 mm[Hg] 70 mm[Hg] Not Available [facility] 3 08:54:42 Date Recorded Body height Body mass index (BMI) Body weight Body temperature Oxygen saturation Oxygen saturation in Arterial blood by Pulse oximetry Heart rate Systolic blood pressure Diastolic blood pressure Provider Name and Address Organization Details Last Updated DateTime 3 162.56 cm 26.4 kg/m2 19295.2 2 g 97.9 [degF] 99 % 99 % 87 /min 110 mm[Hg] 80 mm[Hg] Vera Chavis, [facility] 3 11:15:50 Date Recorded Body height Provider Name an d Address Organization Details Last Updated DateTime 03/03/2023 162.56 cm Yaquelin Del Valleullough, [facility] 03/03/2023 08:52:51 Date Recorded Body height Provider Name an d Address Organization Details Last Updated DateTime 09/22/2022 162.56 cm Not Available [facility] 3 08:54:43 Social History Question Answer Notes LastModified by [employer] Details LastModified Time Tobacco Smoking Status Never Smoker Not Available [facility] 12/02/2022 08:53:35 What Is Your Level Of Caffeine Consumption? Occasional [id number] Information not available 12/02/2022 In The 14 Days Before Symptom Onset, Have You Had Close Contact With A Laboratory-confirm ed COVID-19 While That Case Was Ill? No [id number] Information not available 12/02/2022 In The 14 Days Before Symptom Onset, Have You Had Close Contact With A Person Who Is Under Investigation For COVID-19 While That Person Was Ill? No [id number] Information not available 12/02/2022 Have You Ever Been Counseled For Unhealthy Alcohol Use? No [id number] Information not available 12/02/2022 Has Tobacco Cessation Counseling Been Provided? No [id number] Information not available 12/02/2022 Have You Recently Traveled Abroad? No [id number] Information not available 12/02/2022 Sex: Female Functional Status Question Answer Note LastModified by [employer] Details LastModified Time Do you use any illicit or recreational drugs? No [id number] Information not available 12/02/2022 Do you or have you ever used any other forms of tobacco or nicotine? No [id number] Information not available 12/02/2022 What is your level of alcohol consumption? Occasional [id number] Information not available 12/02/2022 Mental Status None recorded. Family History Nothing Reported Notes:cousin ovarian cancer Medical History No medical history recorded. Gynecological HistoryNo gynecological history recorded. Obstetrics History GPAL:G 0 P 0 0 0 0 Immunizations Vaccine Type Date Status Note Provider Nam e and Address Organization Details Recorded Time tetanus toxoid, unspecified formulation 7 completed Not Available [facility] 12/02/2022 09:00:31 Past Encounters Encounter ID Performer Location Encounter Start Date Encounter Closed Date Diagnosis/Indication Diagnosis SNOMED-CT Code Diagnosis ICD10 Code Diagnosis Note [id number] Merly Rush MD [facility] [place] [address] [place] [address] 04/29/2021 00:00:00 04/29/2021 19:43:59 [id number] Merly Rush MD [facility] [place] [address] [place] [address] 06/10/2021 00:00:00 06/10/2021 18:17:47 [id number] BREANNA Joe [facility] [place] [address] [place] [address] 01/30/2022 00:00:00 01/30/2022 08:57:44 [id number] Merly Rush MD [facility] [place] [address] [place] [address] 07/08/2022 00:00:00 07/27/2022 21:05:53 [id number] Merly Rush MD [facility] [place] [address] [place] [address] 09/08/2022 00:00:00 09/08/2022 09:43:01 [id number] Merly Rush MD [facility] [place] [address] [place] [address] 09/22/2022 00:00:00 09/30/2022 20:43:04 [id number] BREANNA Joe [facility] [place] [address] [place] [address] 11/04/2022 00:00:00 11/04/2022 09:33:22 [id number] BREANNA Joe [facility] [place] [address] [place] [address] 02/19/2023 11:10:45 02/19/2023 11:31:22 Low back pain 175172689 M54.50 Pain mainly across midline low back with radiation into buttocks. Denies any leg pain.She states she is very active and does regular exercise.W ill do course of steroids. She would like to hold off on referral to PT.She is requesting referral to ortho to be evaluated. [id number] FARA De Santiago [facility] [place] [address] [address] [facility] [address] [place] [address] 03/03/2023 08:31:18 03/03/2023 08:53:48 Health Concerns Section Related Observation LastModified by Organization Detai ls LastModified Time None Recorded Concern Status LastModified by Organization Details LastModified Time None Recorded Advance Directives Directive None Recorded Payers Encounter Date Sequence Insurance Name Policy Number Policy Alanis Covered Member ID Alanis Member ID Guarantor Name 02/19/2023 1 [facility] [id number] Madeline E Marcos [id number] Madeline E Marcos 03/03/2023 1 [employer] [id number] Madeline E Stryker [id number] Madeline E Stryker Notes Date Note Type Note Provider Name [...] ortho to be evaluated further. BREANNA Joe [address] [facility], [address], [place], [address], [facility] [facility] Vehrity 02/19/2023 11:52:42 OBGyn Episode No OBEpisode recorded.
--- OUTSIDE RECORDS SUMMARY | 2025-03-03 10:20 | XMS_ITS | Clinical Summary ---
Author Organization [facility] [employer] Address [address] [place] [place] [address] Care Team Providers Care Radiologist Diagnostic Name Role Phone Unavailable Primary Care Provider Unavailabl e Source Comments [facility] [employer],non-owned Affiliates and Associated Physician Practices is amultiple site organization consisting of ambulatory clinics and hospital sitesin [place], [place], [place] and [place]. This disclosure is being madepursuant to the Care Everywhere program and may not contain all information available regarding this patient. Last updated 18.[facility] [employer] Allergies No known active allergies Immunizations Immunization Administration Dates Next Due INFLUENZA VACCINE, QUADR. (F LUZONE; FLULAVAL; FLUARIX; AFLURIA QUADRIVALENT; 6MO+), 0.5 ML (IIV4) 07/19/2017 Social History Tobacco Use Types Packs/Day Years Used Date Smoking Tobacco: Never Assessed Comments Unknown Sex and Gender Information Value Date Recorded Sex Assigned at Not on file Legal Sex Female 4:23 PM CDT Gender Identity Not on file [...] SCREENING 1970 LIPID TESTING 1970 MAMMOGRAM 1970 HIV SCREENING 1985 HEPATITIS C SCREENING 10/14/1988 DTAP/TDAP/TD VACCINES (1 - Tdap) 1989 HEPATITIS B VACCINE (1 of 3 - 19+ 3-dose series) 1989 PNEUMOCOCCAL VACCINE 50+ (1 of 1 - PCV) 2020 ZOSTER VACCINE (1 of 2) 2020 COVID-19 VACCINE (1 - 2023-2 5 season) 2024 DEPRESSION SCREENING 10/04/2024 INFLUENZA VACCINE (Season Ended) 2025 07/19/20 17 HIB VACCINE Aged Out No longer eligi [...] age to complete this topic Insurance [facility]
[2025-03-03 10:49] LABS: Hematocrit 40.7 % (37.0-47.0); Hemoglobin 13.3 g/dL (12.0-15.0); Mean Corpuscular HGB Conc 32.7 g/dl (32-36); Mean Corpuscular Hemoglobin 28.2 pg (26-34); Mean Corpuscular Volume 86.4 fl (80-100); Mean Platelet Volume 10.6 fl (7.4-10.4); Platelet Count Result 174 k/mm3 (150-375); Red Blood Count 4.71 M/mm3 (4.2-5.4); Red Cell Distribution Width 13.1 % (11.5-14.5); White Blood Count 4.7 K/mm3 (4.5-10.0)
[2025-03-03 11:00] LABS: Alanine Aminotransferase 23 U/L (6-35); Albumin Level 4.4 g/dL (3.5-5.1); Alkaline Phosphatase 47 U/L (38-126); Anion Gap 4 mmol/L (4-12); Aspartate Amino Transferase 30 U/L (14-36); Bilirubin,Total 0.5 mg/dL (0.2-1.3); Blood Urea Nitrogen 22 mg/dL (7-17); Calcium 9.2 mg/dL (8.4-10.2); Carbon Dioxide 30 mmol/L (22-30); Chloride 106 mmol/L (98-107); Cholesterol 183 mg/dL (0-200); Estimated Glomerular Filt Rate > 60; Glucose 90 mg/dL (65-110); HDL Direct 62 mg/dL; Potassium 4.5 mmol/L (3.4-5.0); Sodium 140 mmol/L (137-145); Triglycerides 70 mg/dL (<150)
[2025-03-03 11:11] LABS: LDL Cholesterol Direct 89 mg/dL
[2025-03-03 11:38] LABS: Thyroid Stimulating Hormone 0.679 uIU/mL (0.465-4.680)
== END 2025-03-03 10:16 | disposition home or self-care (01) ==
LOC: ANHLAB 10:17
PROVIDERS: PCP Family Medicine; Visit Provider Nurse Practitioner
DX: Z00.00 Encounter for general adult medical examination without abnormal findings (principal); E55.9 Vitamin D deficiency, unspecified
CPT/HCPCS: 36415; 80053; 80061; 82306; 84443; 85027

== ENCOUNTER 2025-04-13 17:16 | Emergency (ER) | payer OTHER, SELFPAY ==
--- NOTE | ~2025-04-13 | XR_ITS ---
3 VIEWS LUMBAR SPINE Ordering provider: FARA Goss History: . midline low back pain. hx t11 compression fx . Comparison: April 19, 2023 FINDINGS: VERTEBRAL BODIES:Minimal Spondylolisthesis is seen at the level of L5-S1. No spondylolysis. No visibl e fracture. DISK SPACES: Narrowing of the disc L5-S1. SOFT TISSUES: Normal. IMPRESSION: No acute osseous abnormality lumbar spine. Minimal spondylolisthesis at the level of L5-S1. Degenerative disc disease at the level of L5-S1. Reviewed, dictated and finalized at location A.
[2025-04-13 17:27] VITALS: BP 114/78; PULSE 80; RESP 16; TEMP 36.3; O2SAT 99
--- NOTE | 2025-04-13 17:55 | ED_ITS ---
HPI - Back Pain/Injury General Chief Complaint: Back Pain/Injury Stated Complaint: Back Pain Time Seen by Provider: 04/13/25 17:34 Source: patient and RN notes reviewed Mode of arrival: ambulatory Limitations: no limitations History of Present Illness HPI Narrative: Patient presents today complaining of midline low back pain x2 days. Pain radiates to the bilateral hips but does not go down the legs. Denies numbness or tingling in the legs or genitalia. Denies loss of bowel or bladder control. She currently rates her pain 2/10 at rest, which increases to 8/10 with movement. She has tried meloxicam and ice with some short-term relief. Pain began after she was moving some heavy furniture recently. Patient has history of a T11 compression fracture with 20% vertebral height loss that occurred approximately 2 years ago. Patient states that her pain had resolved after rehabbing. Related Data Home Medications ?Medication ?Instructions ?Recorded ?Confirmed ?Last Taken ?Type L.crispaarsenious,judie,hernandez,rhamno 5 cap PO 11/10/23 03/26/25 Unknown History billion cell-bacterioph 15 mg capsule (AZO Dual Protection) turmeric root extract 500 mg tablet 500 mg PO DAILY 04/13/24 03/26/25 Unknown History omega-3 fatty acids 1,000 mg 1,000 mg PO DAILY 09/11/24 03/26/25 Unknown History capsule cholecalciferol (vitamin D3) 125 125 mcg PO DAILY 03/26/25 03/26/25 Unknown History mcg (5,000 unit) capsule estrogen 5mg cream .Route 03/26/25 03/26/25 Unknown History magnesium 250 mg tablet 500 mg PO DAILY 03/26/25 03/26/25 Unknown History multivitamin 1 tablet PO DAILY 03/26/25 03/26/25 Unknown History potassium chloride 10 mEq 10 meq PO DAILY 03/26/25 03/26/25 Unknown History capsule,extended release progesterone micronized 200 mg mg PO 03/26/25 03/26/25 Unknown History capsule testosterone 18mg cream .Route 03/26/25 03/26/25 Unknown History vitamin K2 100 mcg capsule 200 mcg PO DAILY 03/26/25 03/26/25 Unknown History Allergies Allergy/AdvReac Type Severity Reaction Status Date / Time No Known Allergies Allergy Mild Verified 04/13/25 17:20 PMFSH Past Medical History Medical History Lateral epicondylitis Bulging disc Vertebral fracture Osteopenia Cubital tunnel syndrome on left Carpal tunnel syndrome, left Anxiety Depression IBS (irritable bowel syndrome) Seizure as baby Pericarditis Surgical History Surgical History H/O foot surgery History of bladder surgery Sling - 2004 History of tubal ligation Family History Family History Sibling Patient's sister is in good health Patient's brother is in good health Family history of eczema Father Depression Family history of alcoholism Anxiety Mother Hypertension Family history of eczema Family history of osteoarthritis Family history of allergic disorder Family history of irritable bowel syndrome Cerebrovascular accident Heart disease Depression Anxiety Grandparent Family history of alcoholism Cerebrovascular accident Family history of malignant neoplasm, Onset Age: 70 Family history of coronary artery disease Heart disease Hypertension Cancer Other Asthma Diabetes mellitus Family history of arthritis Family history of development disorder Family history of malignant neoplasm of breast Family history of mental disorder Social History Social History Smoking status: Never smoker Alcohol intake: current Drinks per week: 1 Alcohol use details: occ Substance use: current Substance use type: does not use Do You Feel Safe in your Home?: Yes Lack of Transportation: No Lack of Food: Never True Current Housing: I Have Housing Concerned About Future Housing: No Difficulty Paying Gas/Electric Bills: No Difficulty Paying for Meds: No Currently Unemployed: No Education: Master's Degree or Higher Difficulty w/ Childcare or Family Care: No Living arrangements: with family Additional living arrangements comments: sons 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 Please see nursing chart for further information. There is no relevant family history pertinent to the presenting complaint Exam Narrative: GENERAL: Well-appearing, well-nourished, and in no acute distress. HEAD: Normocephalic, atraumatic. EYES: EOMI. No redness or drainage. Conjunctivae normal. ENT: Mucous membranes pink and moist. NECK: Normal AROM. CHEST: No respiratory distress. MUSCULOSKELETAL: Midline tenderness of lower T-spine extending to the upper L- spine. Mild tenderness of the right lower lumbar paraspinal muscles. No tenderness on the left. No tenderness to the bilateral SI joints. Pain increases with movement. Distal sensation intact. Saddle sensation intact. 5/5 strength in bilateral BLE. 2+ patellar reflexes bilaterally. EXTREMITIES: Normal range of motion. No edema. SKIN: Warm, dry, no rash. Capillary refill normal. Normal skin turgor. NEURO: No focal deficits. Alert and oriented x3. Gait steady. PSYCH: Normal affect. No signs of depression or anxiety. Course Course Level of Care: Express Care Visit Vital Signs Vital signs: Vital Signs Temperature 97.4 F L 04/13/25 17:27 Pulse Rate 80 04/13/25 17:27 Respiratory Rate 16 04/13/25 17:27 Blood Pressure 114/78 04/13/25 17:27 Pulse Oximetry 99 04/13/25 17:27 Temperature 97.4 F L 04/13/25 17:27 Pulse Rate 80 04/13/25 17:27 Respiratory Rate 16 04/13/25 17:27 Blood Pressure 114/78 04/13/25 17:27 Pulse Oximetry 99 04/13/25 17:27 Reviewed MDM - Back Pain/Injury MDM Narrative Medical decision making narrative: 54-year-old female patient presents with midline low back pain that started 2 days ago after patient had been lifting some heavy furniture. Denies radiation of the pain down the legs or any paresthesias. She has been using meloxicam and ice with some relief. History of T11 compression fracture a few years ago but was not having any residual pain. X-ray is negative for any acute findings. Recommend continuing meloxicam. Patient has some Flexeril at home for previous TMJ, and recommend using this as well if it is helpful. Prescription for prednisone sent to pharmacy to help with inflammation and pain. Also recommend decrease having lifting until pain has resolved. Vital signs stable. Anticipatory guidance given. Differential Diagnosis Differential diagnosis: Likely strain of lumbar region and other (compression fracture, arthritis) Imaging Data Radiologist's impression: ITS Impressions Lumbar Spine X-Ray 04/13/25 18:04 IMPRESSION: No acute osseous abnormality lumbar spine. Minimal spondylolisthesis at the level of L5-S1. Degenerative disc disease at the level of L5-S1. Critical Care Time Critical Care Time Critical Care Time: No Discharge Plan Discharge Clinical Impression: Low back strain Qualifiers: Encounter type: initial encounter Qualified Code(s): S39.012A - Strain of muscle, fascia and tendon of lower back, initial encounter Patient Disposition: Home Condition: Stable Instructions: Low Back Strain (ED) Additional Instructions: Your back x-ray was negative for anything acute today. Continue your meloxicam and Flexeril as needed. Take the prednisone as directed. Rest. Use a heating pad to help relax your muscles. Follow-up with your PCP in 7-10 days if symptoms are not improving, sooner if symptoms are worsening. Patient Language: Mauritian Prescriptions: New prednisone 20 mg tablet 40 mg PO DAILY 5 Days Qty: 10 0RF No Action turmeric root extract 500 mg tablet 500 mg PO DAILY omega-3 fatty acids 1,000 mg capsule 1,000 mg PO DAILY progesterone micronized 200 mg capsule PO testosterone 18mg cream .Route Rx Instructions: apply every morning estrogen 5mg cream .Route Rx Instructions: apply every morning potassium chloride 10 mEq capsule, extended release 10 meq PO DAILY magnesium 250 mg tablet 500 mg PO DAILY multivitamin Tablet 1 tablet PO DAILY cholecalciferol (vitamin D3) 125 mcg (5,000 unit) capsule 125 mcg PO DAILY vitamin K2 100 mcg capsule 200 mcg PO DAILY meloxicam 15 mg tablet 15 mg PO DAILY Qty: 90 1RF cyclobenzaprine 10 mg tablet 10 mg PO TID PRN (Reason: muscle spasm) Qty: 30 0RF AZO Dual Protection 5 billion cell- 15 mg capsule PO estradiol [Vagifem] 10 mcg tablet 10 mcg vaginal 2XW 90 Days Qty: 26 4RF Follow-up/Referrals: Ivania Herrera DO [Primary Care Provider] - Stand Alone Forms: Work/School Release IP Time of Disposition: 18:24
== END 2025-04-13 18:26 | disposition home or self-care (01) ==
PROVIDERS: Emergency Provider Nurse Practitioner; PCP Family Medicine
DX: S39.012A Strain of muscle, fascia and tendon of lower back, initial encounter (principal); X50.0XXA Overexertion from strenuous movement or load, initial encounter
CPT/HCPCS: 72100; 99213; G0463

== ENCOUNTER 2025-04-30 08:45 | Outpatient (RCR) | payer OTHER, SELFPAY ==
--- NOTE | 2025-03-21 14:05 | OTOPEVAL1 ---
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 Pt. reports this results in difficulty with daily tasks and activities, due to numbness and tingling while in hands cleaning her pool, holding her phone, typing and writing, playing pickleball, and comfort during sleep. Pt. is taking Meloxicam, 15 mg, half 2x/day. Reports this has been helping. Pt. reports inconsistent follow through with home treatment plan including wear of bilateral custom wrist splints and therapeutic exercises from previous treatment. Reported Pain Level Pain Score 3,2: Self Report Assessment OT Clinical Summary Pt. is 54 year old F, referred with history of continued bilateral carpal tunnel syndrome, L cubital tunnel syndrome, and R lateral epicondylitis. Patient notes the right 1st -3rd fingers tips are the most problematic and are frequently numb when holding items and when waking from sleep. Pt. does not demonstrate positive Phalen's or Reverse Phalen's tests, but does illicit medial nerve symptoms with Tinnel's test. Pt. demonstrates no ROM deficits, but does display decreased strength and increased pain with testing in dominant R UE. Pt. will benefit from skilled therapy services including therapeutic exercises and activities and use of therapeutic modalities to decrease pain, and nerve compression symptoms, and increase strength to facilitate overall functional capacity and decreased symptoms limiting functional activity. Plan of Care Interventions Therapeutic Exercise,Manual Therapy,Therapeutic Activities,Hot Pack/Cold Pack,Self-Care/Home Management,Paraffin Other Interventions kinesiotaping OT Services Indicated Yes Treatment Frequency and 2x/ week for 8 visits Duration These treatments will address the objective and functional deficits as defined above. The patient will be advanced safely and appropriately in order for the patient to progress towards his/her prior level of function. Additional exercises will be introduced and as well as a comprehensive home exercise program upon discharge, if needed, ?to ensure carryover of functional gains achieved in the clinic. This treatment plan has been reviewed and agreement upon by the patient.
--- NOTE | 2025-03-21 14:06 | OPREHPOC ---
Outpatient Therapy Plan of Care This is a Multidisciplinary Plan of Care that may contain components documented by all disciplines (PT, OT, and ST.) OT Problem 1 OT Problem #1 Knowledge Deficit OT Goal 1 Goal / Goal Update Pt. will demonstrate independence in HEP, reporting completing 5/7 days per week Pt. will demonstrate independence in progressive lateral epicondylitis protocol Target Visit 16 OT Problem 2 OT Problem #2 Pain OT Goal 1 Goal / Goal Update Pt. will report pain/ tingling/numbness of <1/10 6 /7 days of the week Target Visit 16 OT Problem 3 OT Problem #3 Impaired Strength OT Goal 1 Goal / Goal Update Pt. will demonstrate increased dominant hand strength as demonstrated by increased of 10 lbs of desktop support specialist strength and 3 lbs of pinch strength in R UE Target Visit 16 OT Problem 4 OT Problem #4 Impaired Sensation OT Goal 1 Goal / Goal Update Pt. will report impaired sensation with activity < 1 episode /week Target Visit 16
--- NOTE | 2025-04-18 09:44 | PCOTNOTE ---
Pt. scheduled for 9:15 appointment on this date. Pt. did not show up or call to cancel. Pt. called, message left.
--- NOTE | 2025-04-30 17:22 | OTOPEVDC ---
Assessment and note entered by Kayla Watts OT Thank you for referring Madeline Rodríguez to [facility].? An evaluation has been completed. No further treatment is needed. Reported Pain Level Pain Score 0,0,0,4,0: Self Report Assessment OT Clinical Summary Pt. is 54 year old F, referred with history of continued bilateral carpal tunnel syndrome, L cubital tunnel syndrome, and R lateral epicondylitis. Pt. has progressed through exercise and therapeutic modalities. Pt. continues to demonstrates no ROM deficits. Pt. presents for revaluation, and has not increased overall strength, but reports decreased pain, numbness, and tingling related to previous conditions, particularly while participating in daily activities and exercises. Pt. additionally displays normal sensation across bilateral hands, as displayed by the [place] Kushal Monofilaments test. Pt. reports that due to decreased symptoms, she is content to discharge from services on this date. Pt. issued maintenance exercises to continue management of symptoms and plans to increase strength based exercises in the community .
== END 2025-05-01 10:07 | disposition home or self-care (01) ==
LOC: ANHOT 08:45
PROVIDERS: PCP Family Medicine; Visit Provider Physician Assistant Surgical
DX: G56.03 Carpal tunnel syndrome, bilateral upper limbs (principal); G56.21 Lesion of ulnar nerve, right upper limb; M77.11 Lateral epicondylitis, right elbow
CPT/HCPCS: 97018; 97110; 97140; 97165; 97530

== ENCOUNTER 2025-05-07 10:21 | Outpatient (CLI) | payer OTHER, SELFPAY ==
--- OUTSIDE RECORDS SUMMARY | 2025-05-07 10:43 | XMS_ITS | Encounter Summary ---
Author Organization [facility] Address [address] [place] [id number] Care Team Providers Care Invisible Braces Orthodontist Name Role Phone Merly Rush MD Primary Care Provider [phone] Luis Pandya MD Unavailable [phone] Encounter Details Date Type Department Care Team (Late st Contact Info) Description 10/11/2018 Abstract [facility] at [facility], [address] [place] [address] Sherie Sainz MA Social History Tobacco Use [...] Result * CBC (OUTSIDE LAB) (09/18/2018) Pathologist [facility] WBC 7.7 HGB 12.7 HCT 37.6 PLT 191 09/18/2018 us Doc [facility] Abstract LAB-OUTSIDE/ABSTRACTED Final Result documented in this encounter Visit Diagnoses Not on filedocumented in this encounter Care Teams Invisible Braces Orthodontist Relationship Specialty Start Date End Date Merly Rush MD [address] [place] [address] [place] [address] PCP - General FAMILY PRACTICE 09/20/18 Luis Pandya MD Three [facility]. [address] [place] [address] Marcella Tea Leaf Reader CARDIOVASCULAR DISEASE 09/20/18 documented as of this encounter
--- OUTSIDE RECORDS SUMMARY | 2025-05-07 10:43 | XMS_ITS | Patient Health Record ---
Author Organization [facility] Address [address] [place], [place] [id number] Support Name Relationship Address Phone TOREY MONTES DE OCA Emergency Contact Unknown [phone] CIARA BRAND Guarantor Unknown [phone] Reason For Referral No Information Plan Of Treatment No Information Insurance Providers Payer Name Payer Address Payer Phone Subscriber Number Group Number Insured Name Patient Relationship to Insured Coverage Start Date Coverage End Date Reading [facility] [address] [address] [place], [place] [id number] CIARA BRAND Self - patient is the insured
--- OUTSIDE RECORDS SUMMARY | 2025-05-07 10:43 | XMS_ITS | Clinical Summary ---
Author Organization [facility] Address [facility] [place] [address] Care Team Providers Care Associate Professor Of Psychology Name Role Phone Merly Rush MD Primary Care Provider [phone] Luis Pandya MD Unavailable [phone] Allergies No known active allergies Medications [...] A M CDT Height 162.6 cm (5' 4) 04/19/2019 8:29 AM CDT Body Mass Index [...] Screening with HPV 2000 Mammogram Screening 2010 Pneumococcal Vaccine: 50+ Ye ars (1 of 1 - PCV) 2020 Zoster Vaccines (1 of 2) 2020 COVID-19 Vaccine (1 - 2023-2 5 season) 2024 Meningococcal B Vaccine Aged Out No l onger eligible based on patient's age to complete this topic Meningococcal Vaccine Aged Out No evette amna eligible based on patient's age to complete this topic RSV Immunizations Under 20 Months Aged Out No longer eligible based on patient's age to complete this topic Insurance [employer] Care Teams Associate Professor Of Psychology Relationship Specialty Start Date End Date Merly Rush MD [address] [place] [address] [place] [address] PCP - General FAMILY PRACTICE 09/20/18 Luis Pandya MD [facility]. [address] [address] Marcella Sales Clerk Food CARDIOVASCULAR DISEASE 09/20/18
--- OUTSIDE RECORDS SUMMARY | 2025-05-07 10:43 | XMS_ITS | Clinical Summary ---
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
--- OUTSIDE RECORDS SUMMARY | 2025-05-07 10:43 | XMS_ITS | Clinical Summary ---
Author Organization [facility] Address [address] [facility] [place] [address] Care Team Providers Care Forest Economics Professor Name Role Phone Unavailable Primary Care Provider Unavailabl e Source Comments [facility],non-owned Affiliates and Associated Physician Practices is amultiple site organization consisting of ambulatory clinics and hospital sitesin [place], [place], [place] and [place]. This disclosure is being madepursuant to the Care Everywhere program and may not contain all information available regarding this patient. Last updated 18.[facility] Allergies No known active allergies Immunizations Immunization [...] season) 2024 DEPRESSION SCREENING 10/04/2024 INFLUENZA VACCINE (#1) 2025 07/19/2017 HIB VACCINE Aged Out No longer eligi [...] patient's age to complete this topic Insurance [facility]
--- OUTSIDE RECORDS SUMMARY | 2025-05-07 10:43 | XMS_ITS | Referral Summary ---
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
[2025-05-08 07:08] LABS: FSH 73.6 mIU/mL (.)
[2025-05-11 14:08] LABS: Free Testosterone (Direct) <0.2 pg/mL (0.0-4.2)
== END 2025-05-07 10:22 | disposition home or self-care (01) ==
LOC: ANHGOSHLAB 10:22
PROVIDERS: PCP Family Medicine; Visit Provider Chiropractor
DX: N95.1 Menopausal and female climacteric states (principal)
CPT/HCPCS: 83001; 84144; 84270; 84402; 84403

== ENCOUNTER 2025-07-09 12:04 | Outpatient (CLI) | payer OTHER, SELFPAY ==
--- NOTE | ~2025-07-09 | DEXA_ITS ---
Bone Density Report Name: CIARA BRAND Age: 54 Sex: Female Ethnicity: White Date of : 1970 Indication: osteopenia; parental hip fracture; height loss; prior fracture; Referring Provider: Ivania Herrera Study: Bone densitometry was performed. Exam Date: July 09, 2025 Accession number: [id number] Bone Density: Region BMD T-score Z-score Classification AP Spine(L1-L4) 0.950 -0.9 0.2 Normal Femoral Neck (Left) 0.653 -1.8 -0.7 Osteopenia Total Hip (Left) 0.771 -1.4 -0.7 Osteopenia Femoral Neck (Right) 0.689 -1.4 -0.4 Osteopenia Total Hip (Right) 0.781 -1.3 -0.7 Osteopenia Femoral Neck Mean 0.671 -1.6 -0.6 Osteopenia Total Hip Mean 0.776 -1.4 -0.7 Osteopenia World Health Organization criteria for BMD impression classify patients as: Normal (T-score at or above -1.0), Osteopenia (T-score between -1.0 and -2.5), or Osteoporosis (T-score at or below -2.5). 10-year Fracture Risk: FRAX not reported because: Prior hip or vertebral fracture Previous Exams: Region Exam Age BMD T-score BMD Change BMD Change Date g/cm2 vs Baseline vs Previous AP Spine (L1-L4) 07/09/2025 54 0.950 -0.9 0.044 (4.8%)* 0.044 (4.8%)* 07/02/2023 52 0.907 -1.3 Total Hip(Left) 07/09/2025 54 0.771 -1.4 0.009 (1.1%) 0.009 (1.1%) 07/02/2023 52 0.762 -1.5 Total Hip(Right) 07/09/2025 54 0.781 -1.3 0.035 (4.7%)* 0.035 (4.7%)* 07/02/2023 52 0.746 -1.6 *Denotes significance at 95% confidence level, LSC for AP Spine = 0.022 g/cm2, LSC for Total Hip = 0.027 g/cm2 Clinical Information Provided by Patient: Have had a previous hip or vertebral fracture Has had a low trauma fracture Parent has had a hip fracture Has used the following medications: HRT (i.e. estrogen/hormone therapy), Vitamin D, Multi Patient maximum height was 64 Menopause Age: 54 Does not regularly consume dairy products Drinks caffeinated beverages Onset of menses at age 13 Number of children 2 Impression: The patient has low bone mass, based on the Left Femoral Neck T-score. The patient has risk factors, including: parental hip fracture, previous fracture. No significant bone loss was observed. Discussion: INCREASED RISK OF FRACTURE DUE TO HISTORY OF FRACTURE. The patient's previous fracture puts the patient at high risk of a future fracture. In untreated patients, the risk of osteoporotic fracture increases approximately two-fold for each 1.0 SD decrease in T-score. Low bone density is not the only risk factor for fracture; also consider factors such as patient's age, frailty or poor health, risk of falling, risk of injury, previous osteoporotic fracture, family history of osteoporosis, cigarette smoking, low body weight, etc. Not everyone with a low trauma fracture has osteoporosis; osteomalacia and other metabolic bone disorders should also be considered. Patients who have osteoporosis should be evaluated for specific diseases and conditions (secondary causes) that may cause or contribute to bone loss and fracture risk. National Osteoporosis Foundation (NOF) recommends pharmacologic intervention for patients with a prior hip or vertebral fracture regardless of BMD T-score. The patient should follow a healthful lifestyle (good nutrition with adequate calcium and vitamin D, and appropriate weight-bearing exercise). Follow-Up: Consider a repeat BMD and Vertebral Fracture Assessment (VFA) exam in 2 years or sooner if medically necessary, to reassess this patient's status. Reported by: LAMAR on 07/09/2025 12:34:00 PM. Reviewed, dictated and finalized at location A.
--- OUTSIDE RECORDS SUMMARY | 2025-07-09 13:14 | XMS_ITS | Encounter Summary ---
Author Organization [facility] Address [address] [place] [address] Care Team Providers Care Senior Nurse Manager Name Role Phone Merly Rush MD Primary Care Provider [phone] Luis Pandya MD Unavailable [phone] Encounter Details Date Type Department Care Team (Late st Contact Info) Description 10/11/2018 Abstract [facility] at [facility], [facility] [address] [place] [address] Sherie Sainz MA Social History Tobacco Use [...] Result * CBC (OUTSIDE LAB) (09/18/2018) Pathologist [facility] WBC 7.7 HGB 12.7 HCT 37.6 PLT 191 09/18/2018 us Doc [facility] Abstract LAB-OUTSIDE/ABSTRACTED Final Result documented in this encounter Visit Diagnoses Not on filedocumented in this encounter Care Teams Senior Nurse Manager Relationship Specialty Start Date End Date Merly Rush MD [address] [place] [address] [place] [address] PCP - General FAMILY PRACTICE 09/20/18 Luis Pandya MD [facility]. [address] [place] [address] Marcella Security Control Room Officer CARDIOVASCULAR DISEASE 09/20/18 documented as of this encounter
--- OUTSIDE RECORDS SUMMARY | 2025-07-09 13:14 | XMS_ITS | Clinical Summary ---
Author Organization [facility] Address [address] [place] [address] Care Team Providers Care Production Engineer Track Name Role Phone Jasmina Chase Primary Care Provider [phone] Allergies No known active allergies Medications buPROPion [...] on file Legal Sex Female 10:24 AM [employer] Gender Identity Not on file Sexual Orientation [...] Vaccine (1 of 2) 2020 Covid-19 Vaccine (2024- season) 2025 02/23/2022, 07/11/2021, 10/29/2020, Additional history exists Influenza Vaccine (#1) 2025 07/19/2017 Pneumococcal vaccine <65 Aged Out No longer eligible based on patient's age to complete this topic Insurance [facility] CORE [facility] Care Teams Production Engineer Track Relationship Specialty Start Date End Date Jasmina Chase PA [address] [place] [address] PCP - General 02/19/23
--- OUTSIDE RECORDS SUMMARY | 2025-07-09 13:14 | XMS_ITS | Data Portability ---
Author Organization [place] [facility] [employer], Main Office Address [address] [place] [address] Assessment No assessment recorded. Plan of Treatment Reminders Order Date Submit Date Provider Last Modified By Organization Details Last Modified Time Details Appointments None recorded. Lab None recorded. Referral orthopedic spine surgeon referral - Please call the patient to make an appt. Thank you [email or web address] [facility] [address] [facility], [address] [place] [address], [address], 3 15:39:30 Procedures None recorded. Surgeries None recorded. Imaging None recorded. Medication Orders prednisone 20 mg tablet 2022 023 [id number], [address] [place], [place], [id number], 3 11:29:29 Patient TargetsNo targets recorded. Patient [...] ECLIA metho dolog y Perfo rmed at: [facility] [address] [place] [address] Lab Direc tor: Juan A martinez PhD, Phone : [phone] Not Available [facility] (Lab) [address] [place] [address], [address], 09/10/2022 09:12:57 09/08/20 22 09/10/2022 LH/ARIC TEINI ZING HORMO NE LH - [facility] 17.6 mIU/m L Adult Femal e: Folli cular phase 2.4 - 12.6 Ovula tion phase 14.0 - 95.6 Lutea l phase 1.0 - 11.4 Postm enopa usal 7.7 - 58.5 Perfo rmed at: [facility] [address] [place] [address] Lab Direc tor: Juan A martinez PhD, Phone : [phone] Not Available Not Available 09/10/2022 09:12:56 09/08/20 22 09/10/2022 PROGE STERO NE progesterone 0.8 NG/mL Folli cular phase 0.1 - 0.9 Lutea l phase 1.8 - 23.9 Ovula tion phase 0.1 - 12.0 Pregn ant First trime ster 11.0 - 44.3 Secon d trime ster 25.4 - 83.3 Third trime ster 58.7 - 214.0 Postm enopa usal 0.0 - 0.1 Perfo rmed at: [facility] [address] [place], [place] [address] Lab Direc tor: Juan A martinez PhD, Phone : [phone] Not Available [facility] (Lab) [address] [place] [address], [address], 09/10/2022 09:12:54 09/08/20 22 09/10/2022 FSH/F OLLIC LE STIMU LAT. HORMO NE FSH - [facility] 21.2 mIU/m L Adult Femal e: Folli cular phase 3.5 - 12.5 Ovula tion phase 4.7 - 21.5 Lutea l phase 1.7 - 7.7 Postm enopa usal 25.8 - 134.8 Perfo rmed at: [facility] [address] [facility] [address], [place] [address] Lab Direc tor: Juan A martinez PhD, Phone : [phone] Not Available Not Available 09/10/2022 08:14:20 09/08/20 22 09/08/2022 CULTU RE URINE urc ===== ===== ===== ===== ===== ===== ===== ===== ===== ===== ===== ===== ===== ===== ===== ===== ===== ===== ===== ===== ===== ===== ===== ===== CULTU RE NO.: [id number] Exam Statu s: Final Exam Type: [...] ap - Pheno type Name Not Available [facility] (Lab) [address] [place], [address], 09/10/2022 08:01:26 09/08/20 22 09/08/2022 URINA LYSIS COMPL ETE/I RIS W/RFX color dark-y ellow Not Available [facility] (Lab) [address] [place], [address], 09/08/2022 22:48:35 09/08/20 22 09/08/2022 URINA LYSIS COMPL ETE/I RIS W/RFX appear extra turbid abnormal Not Available [facility] (Lab) [address] [place], [address], 09/08/2022 22:48:35 09/08/20 22 09/08/2022 URINA LYSIS COMPL ETE/I RIS W/RFX specific gravity 1.028 1.001- 1.030 Not Available [facility] (Lab) [address] [place], [address], 09/08/2022 22:48:35 09/08/20 22 09/08/2022 URINA LYSIS COMPL ETE/I RIS W/RFX pH 6.0 pH_un its 5.0-9. 0 Not Available [facility] (Lab) [address] [facility] [place], [address], 09/08/2022 22:48:35 09/08/20 22 09/08/2022 URINA LYSIS COMPL ETE/I RIS W/RFX leukocytes >/=500 zaida/u L negati ve- abnormal Not Available [facility] (Lab) [address] [facility] [place], [address], 09/08/2022 22:48:35 09/08/20 22 09/08/2022 URINA LYSIS COMPL ETE/I RIS W/RFX nitrite negati ve negati ve- Not Available [facility] (Lab) [address] [place], [address], 09/08/2022 22:48:35 09/08/20 22 09/08/2022 URINA LYSIS COMPL ETE/I RIS W/RFX protein 300 mg/dL negati ve- abnormal Not Available [facility] (Lab) [address] [place], [address], 09/08/2022 22:48:35 09/08/20 22 09/08/2022 URINA LYSIS COMPL ETE/I RIS W/RFX glucose normal mg/dL normal - Not Available [facility] (Lab) [address] [place], [address], 09/08/2022 22:48:35 09/08/20 22 09/08/2022 URINA LYSIS COMPL ETE/I RIS W/RFX ketones negati ve mg/dL negati ve- Not Available [facility] (Lab) [address] [place], [address], 09/08/2022 22:48:35 09/08/20 22 09/08/2022 URINA LYSIS COMPL ETE/I RIS W/RFX urobilinogen normal mg/dL normal - Not Available [facility] (Lab) [address] [place], [address], 09/08/2022 22:48:35 09/08/20 22 09/08/2022 URINA LYSIS COMPL ETE/I RIS W/RFX bilirubin negati ve mg/dL negati ve- Not Available [facility] (Lab) [address] [place], [address], 09/08/2022 22:48:35 09/08/20 22 09/08/2022 URINA LYSIS COMPL ETE/I RIS W/RFX blood >/=1.0 mg/dL negati ve- abnormal Not Available [facility] (Lab) [address] [place], [address], 09/08/2022 22:48:35 09/08/20 22 09/08/2022 URINA LYSIS COMPL ETE/I RIS W/RFX white blood cells packed /i??h pfi?? 0-8 abnormal Not Available [facility] (Lab) [address] [place], [address], 09/08/2022 22:48:35 09/08/20 22 09/08/2022 URINA LYSIS COMPL ETE/I RIS W/RFX red blood cells packed /i??h pfi?? 0-4 abnormal Not Available [facility] (Lab) [address] [place], [address], 09/08/2022 22:48:35 09/08/20 22 09/08/2022 URINA LYSIS COMPL ETE/I RIS W/RFX bacteria none Not Available [facility] (Lab) [address] [place], [address], 09/08/2022 22:48:35 09/08/20 22 09/08/2022 URINA LYSIS COMPL ETE/I RIS W/RFX mucous many /i??l pfi?? abnormal Not Available [facility] (Lab) [address] [place], [address], 09/08/2022 22:48:35 09/08/20 22 09/08/2022 URINA LYSIS COMPL ETE/I RIS W/RFX squamous epithelial packed field /i??l pfi?? abnormal Not Available [facility] (Lab) [address] [place], [address], 09/08/2022 22:48:35 09/08/20 22 09/08/2022 URINA LYSIS COMPL ETE/I RIS W/RFX calcium oxalate crystal few /i??h pfi?? none seen- abnormal Not Available [facility] (Lab) [address] [place], [address], 09/08/2022 22:48:35 09/08/20 22 09/08/2022 GINI TIN ferritin 21 NG/mL 11.1-2 64 Not Available [facility] (Lab) [address] [place], [address], 09/08/2022 21:56:19 09/08/20 22 09/08/2022 TSH thyroid-stim ulating hormone 0.084 uIU/m L 0.465- 4.680 low Not Available [facility] (Lab) [address] [place], [address], 09/08/2022 21:56:15 09/08/20 22 09/08/2022 IRON/ TIBC PANEL total iron binding capacity 306 mcg/d L 265-47 5 Not Available [facility] (Lab) [address] [place], [address], 09/08/2022 21:40:53 09/08/20 22 09/08/2022 IRON/ TIBC PANEL % transferrin saturation 18 % 20-55 low Not Available [facility] (Lab) [address] [place], [address], 09/08/2022 21:40:53 09/08/20 22 09/08/2022 IRON/ TIBC PANEL unsaturated iron bind capacity 251 mcg/d L 126-38 2 Not Available [facility] (Lab) [address] [place], [address], 09/08/2022 21:40:53 09/08/20 22 09/08/2022 IRON/ TIBC PANEL iron 55 mcg/d L 42-175 Not Available [facility] (Lab) [address] [place], [address], 09/08/2022 21:40:53 09/08/20 22 09/08/2022 CBC/C OMPLE TE BLD COUNT W/DIF F white blood cells 8.7 x10'3 /uL 4.2-10 .8 Not Available [facility] (Lab) [address] [place], [address], 09/08/2022 21:29:49 09/08/20 22 09/08/2022 CBC/C OMPLE TE BLD COUNT W/DIF F red blood cells 4.13 x10'6 /uL 3.80-5 .20 Not Available [facility] (Lab) [address] [place], [address], 09/08/2022 21:29:49 09/08/20 22 09/08/2022 CBC/C OMPLE TE BLD COUNT W/DIF F hemoglobin 12.1 g/dL 12.0-1 5.6 Not Available [facility] (Lab) [address] [place], [address], 09/08/2022 21:29:49 09/08/20 22 09/08/2022 CBC/C OMPLE TE BLD COUNT W/DIF F hematocrit 37.6 % 35.7-4 5.7 Not Available [facility] (Lab) [address] [place], [address], 09/08/2022 21:29:49 09/08/20 22 09/08/2022 CBC/C OMPLE TE BLD COUNT W/DIF F mean red cell volume 91.0 fL 82.0-9 9.0 Not Available [facility] (Lab) [address] [place], [address], 09/08/2022 21:29:49 09/08/20 22 09/08/2022 CBC/C OMPLE TE BLD COUNT W/DIF F mean red cell hemoglobin 29.3 pg 27.0-3 3.0 Not Available [facility] (Lab) [address] [place], [address], 09/08/2022 21:29:49 09/08/20 22 09/08/2022 CBC/C OMPLE TE BLD COUNT W/DIF F mean RBC HGB concentratio n 32.2 g/dL 31.0-3 6.0 Not Available [facility] (Lab) [address] [place], [address], 09/08/2022 21:29:49 09/08/20 22 09/08/2022 CBC/C OMPLE TE BLD COUNT W/DIF F red cell distribution width 13.6 % 11.8-1 5.5 Not Available [facility] (Lab) [address] [place], [address], 09/08/2022 21:29:49 09/08/20 22 09/08/2022 CBC/C OMPLE TE BLD COUNT W/DIF F platelets 201 x10'3 /uL 150-40 0 Not Available [facility] (Lab) [address] [place], [address], 09/08/2022 21:29:49 09/08/20 22 09/08/2022 CBC/C OMPLE TE BLD COUNT W/DIF F mean platelet volume 11.4 fL 9.0-12 .4 Not Available [facility] (Lab) [address] [place], [address], 09/08/2022 21:29:49 09/08/20 22 09/08/2022 CBC/C OMPLE TE BLD COUNT W/DIF F neutrophils 83.5 % 39.0-7 2.0 high Not Available [facility] (Lab) [address] [place], [address], 09/08/2022 21:29:49 09/08/20 22 09/08/2022 CBC/C OMPLE TE BLD COUNT W/DIF F lymphocytes 10.5 % 16.0-4 7.0 low Not Available [facility] (Lab) [address] [place], [address], 09/08/2022 21:29:49 09/08/20 22 09/08/2022 CBC/C OMPLE TE BLD COUNT W/DIF F monocytes 4.9 % 5.0-12 .0 low Not Available [facility] (Lab) [address] [place], [address], 09/08/2022 21:29:49 09/08/20 22 09/08/2022 CBC/C OMPLE TE BLD COUNT W/DIF F eosinophils 0.8 % 1.0-7. 0 low Not Available [facility] (Lab) [address] [place], [address], 09/08/2022 21:29:49 09/08/20 22 09/08/2022 CBC/C OMPLE TE BLD COUNT W/DIF F basophils 0.1 % 0.0-2. 0 Not Available [facility] (Lab) [address] [place], [address], 09/08/2022 21:29:49 09/08/20 22 09/08/2022 CBC/C OMPLE TE BLD COUNT W/DIF F immature granulocytes 0.2 % 0.00-0 .50 Not Available [facility] (Lab) [address] [place], [address], 09/08/2022 21:29:49 09/08/20 22 09/08/2022 CBC/C OMPLE TE BLD COUNT W/DIF F neutrophils, absolute count 7.26 x10'3 /uL 1.5-8. 0 Not Available [facility] (Lab) [address] [place], [address], 09/08/2022 21:29:49 09/08/20 22 09/08/2022 CBC/C OMPLE TE BLD COUNT W/DIF F lymphocytes, absolute count 0.91 x10'3 /uL 1.07-3 .43 low Not Available [facility] (Lab) [address] [place], [address], 09/08/2022 21:29:49 09/08/20 22 09/08/2022 CBC/C OMPLE TE BLD COUNT W/DIF F monocytes, absolute count 0.43 x10'3 /uL 0.29-0 .99 Not Available [facility] (Lab) [address] [place], [address], 09/08/2022 21:29:49 09/08/20 22 09/08/2022 CBC/C OMPLE TE BLD COUNT W/DIF F eosinophils, absolute count 0.07 x10'3 /uL 0.02-0 .53 Not Available [facility] (Lab) [address] [place], [address], 09/08/2022 21:29:49 09/08/20 22 09/08/2022 CBC/C OMPLE TE BLD COUNT W/DIF F basophils, absolute count 0.01 x10'3 /uL 0.01-0 .08 Not Available [facility] (Lab) [address] [place], [address], 09/08/2022 21:29:49 09/08/20 22 09/08/2022 CBC/C OMPLE TE BLD COUNT W/DIF F immature granulocytes ,absolute 0.02 x10'3 /uL 0.00-0 .05 Not Available [facility] (Lab) [address] [facility] [place], [address], 09/08/2022 21:29:49 09/08/20 22 09/08/2022 CBC/C OMPLE TE BLD COUNT W/DIF F nucleated red blood cells 0.0 % -0 Not Available [facility] (Lab) [address] [facility] [place], [address], 09/08/2022 21:29:49 09/08/20 22 09/08/2022 CBC/C OMPLE TE BLD COUNT W/DIF F NRBC# 0.00 x10'3 /uL Not Available [facility] (Lab) [address] [place], [address], 09/08/2022 21:29:49 09/22/20 22 09/23/2022 T4 FREE free T4 1.23 NG/dL 0.78-2 .19 Not Available [facility] (Lab) [address] [place], [address], 09/23/2022 16:15:52 09/22/20 22 09/23/2022 TSH thyroid-stim ulating hormone 0.100 uIU/m L 0.465- 4.680 low Not Available [facility] (Lab) [address] [place], [address], 09/23/2022 16:15:32 03/03/20 23 03/03/2023 CULTU RE URINE urc ===== ===== ===== ===== ===== ===== ===== ===== ===== ===== ===== ===== ===== ===== ===== ===== ===== ===== ===== ===== ===== ===== ===== ===== CULTU RE NO.: [id number] Exam Statu s: Final Exam Type: [...] furan toin <=16 S 021T Not Available [facility] (Lab) [address] [place], [address], 03/05/2023 08:28:26 03/16/20 23 03/16/2023 urina lysis , dipst ick Leukocytes (reference range: negative zaida/ l) Modera te Not Available [address], [place], [address], 03/02/2023 18:11:15 03/16/20 23 03/16/2023 urina lysis , dipst ick Nitrite (reference rage: negative mg/dl) positi ve Not Available [address], [place], [address], 03/02/2023 18:11:15 03/16/20 23 03/16/2023 urina lysis , dipst ick Urobilinogen (reference range: 0.2-1 mg/dl) 0.2 Not Available [address], [place], [address], 03/02/2023 18:11:15 03/16/20 23 03/16/2023 urina lysis , dipst ick Protein (reference range: negative mg/dl) Negati ve Not Available [address], [place], [address], 03/02/2023 18:11:15 03/16/20 23 03/16/2023 urina lysis , dipst ick pH (reference range: 5-7) 5.5 Not Available [address], [place], [address], 03/02/2023 18:11:15 03/16/20 23 03/16/2023 urina lysis , dipst ick Blood (reference range: negative Glen/ l) Small Not Available [address], [place], [address], 03/02/2023 18:11:15 03/16/20 23 03/16/2023 urina lysis , dipst ick Specific [place] (reference range: 1.005-1.030) 1.025 Not Available [address], [place], [address], 03/02/2023 18:11:15 03/16/20 23 03/16/2023 urina lysis , dipst ick Ketone (reference range: negative mg/dl) Negati ve Not Available [address], [place], [address], 03/02/2023 18:11:15 03/16/20 23 03/16/2023 urina lysis , dipst ick Bilirubin (reference range: negative mg/dl) Negati ve Not Available [address], [place], [address], 03/02/2023 18:11:15 03/16/20 23 03/16/2023 urina lysis , dipst ick Glucose (reference range: negative mg/dl) Negati ve Not Available [address], [place], [address], 03/02/2023 18:11:15 03/16/20 23 03/16/2023 urina lysis , dipst ick Appearance Cloudy Not Available [address], [place], [address], 03/02/2023 18:11:15 03/16/20 23 03/16/2023 urina lysis , dipst ick Color Dark Yellow Not Available [address], [place], [address], 03/02/2023 18:11:15 12/23/19 23 12/21/2022 US, [facility]ro id [facility] [address], [place], [address], 12/23/2022 08:16:40 12/23/19 23 12/21/2022 US, pelvi s No observ ation record ed. [address], [address], 12/23/2022 08:17:00 04/19/20 23 04/19/2023 XR, lumba r spine No observ ation record ed. [email or web address] [address], [place], [address], 04/22/2023 17:50:53 04/19/20 23 04/19/2023 XR, hip + pelvi s, bilat eral No observ ation record ed. [email or web address] [facility] (Imaging) [address] [place] [address], [address], 05/06/2023 11:35:01 05/05/20 23 05/05/2023 MRI, thora cic spine , w/o contr ast No observ ation record ed. [address] [address], [place], [address], 05/12/2023 08:24:40 05/05/20 23 05/05/2023 MRI, lumba r spine , w/o contr ast No observ ation record ed. [email or web address] [address], [place], [address], 05/06/2023 13:02:35 07/14/20 23 07/14/2023 MAMMO , scree esteban, digit al, bilat eral No observ ation record ed. [address], [address], 02/11/2024 10:42:40 Result Notes None recorded. Problems Name Problem SNOMED Code Status Onset Date Resolution Date Notes Provider Name and Address Organization Details Recorded Time Abnormal weight gain 200694526 Active Not Available [employer] 08:57:36 Backache 148564261 Active Not Available [facility] 3 08:57:36 Pain in throat 547476567 Active Not Available [facility] 3 08:57:36 Abdominal pain 29548684 Active Not Available [facility] 3 08:57:36 Shoulder joint pain 652823305 Active Not Available [facility] 3 08:57:36 Vaginitis 42391810 Active Not Available [facility] 3 08:57:37 Knee pain Active Not Available [facility] 3 08:57:37 Depressive disorder 51922109 Active Not Available [facility] 3 08:57:37 Menorrhagi a 287168806 Active Not Available [facility] 3 08:57:37 Vertigo 585166973 Active Not Available [facility] 3 08:57:37 Anxiety 18411615 Active Not Available [facility] 3 08:57:37 Pain of hip region 48557911 Active Not Available [facility] 3 08:57:37 Carpal tunnel syndrome 53264852 Active Not Available [facility] 3 08:57:37 Low back pain 513711101 Active 2022 BREANNA Joe [address], [address] [employer], [place], [address] , [employer] [facility] [employer] [facility] 3 11:26:30 Dysuria 92158441 Active 2022 FARA De Santiago [address], [address], [place], [address] , [employer] [facility] [employer] [facility] 3 18:11:09 Pain of bilateral hip joints 6877838892035 9100 Active 2022 BREANNA Joe [address], [address], [place], [address] , [employer] [facility] [employer] [facility] 3 10:54:58 Degenerati on of lumbar interverte bral disc 98204030 Active 2022 Merly Rush MD [address], [address], [place], [address] , [facility] [employer] [facility] 3 17:03:54 Compressio n fracture of thoracic vertebra 2834985694524 Active 2022 Merly Rush MD [address], [address] [address], [place], [address] , [facility] [employer] [facility] 3 17:04:07 Compressio n fracture of thoracic spine 074203034 Active 2022 Merly Rush MD [address], [facility] [address], [place], [address] , [employer] [facility] [employer] [facility] 3 08:07:47 Problem Notes None recorded. Medical [...] Heart rate Body temperature Body weight Systolic And Diastolic Provider Name and Address Organization Details Last Updated DateTime 3 25.6 kg/m2 162.56 cm 99 % 99 % 77 /min 96.5 [degF] 02516.2 6 g 100/70 mm[Hg] Not Available [employer] 3 08:54:42 Date Recorded Body height Body mass index (BMI) Body weight Body temperature Oxygen saturation Oxygen saturation in Arterial blood by Pulse oximetry Heart rate Systolic And Diastolic Provider Name and Address Organization Details Last Updated DateTime 3 162.56 cm 26.4 kg/m2 71539.2 2 g 97.9 [degF] 99 % 99 % 87 /min 110/80 mm[Hg] Vera Chavis, [facility] 3 11:15:50 Date Recorded Body height Provider Name an d Address Organization Details Last Updated DateTime 03/03/2023 162.56 cm Yaquelin Wise [facility] 03/03/2023 08:52:51 Date Recorded Body height Provider Name an d Address Organization Details Last Updated DateTime 09/22/2022 162.56 cm Not Available [facility] 3 08:54:43 Social History Question Answer Notes LastModified by [email or web address] Details LastModified Time Tobacco Smoking Status Never Smoker Not Available [facility] 12/02/2022 08:53:35 What Is Your Level Of Caffeine Consumption? Occasional [id number] Information not available 12/02/2022 In The 14 Days Before Symptom Onset, Have You Had Close Contact With A Laboratory-confirm ed COVID-19 While That Case Was Ill? No [id number] Information not available 12/02/2022 In The 14 Days Before Symptom Onset, Have You Had Close Contact With A Person Who Is Under Investigation For COVID-19 While That Person Was Ill? No [id number] Information not available 12/02/2022 Have You Ever Been Counseled For Unhealthy Alcohol Use? No [id number] Information not available 12/02/2022 Has Tobacco Cessation Counseling Been Provided? No [id number] Information not available 12/02/2022 Have You Recently Traveled Abroad? No [id number] Information not available 12/02/2022 Sex: Female Functional Status Question Answer Note LastModified by [email or web address] Details LastModified Time Do you use any illicit or recreational drugs? No [id number] Information not available 12/02/2022 Do you or have you ever used any other forms of tobacco or nicotine? No [id number] Information not available 12/02/2022 What is your level of alcohol consumption? Occasional [id number] Information not available 12/02/2022 Mental Status None recorded. Family History Nothing Reported Notes:cousin ovarian cancer Medical History No medical history recorded. Gynecological HistoryNo gynecological history recorded. Obstetrics History GPAL:G 0 P 0 0 0 0 Immunizations Vaccine Type Date Status Note Provider Nam e and Address Organization Details Recorded Time tetanus toxoid, unspecified formulation 7 completed Not Available [facility] 12/02/2022 09:00:31 Past Encounters Encounter ID Performer Location Encounter Start Date Encounter Closed Date Diagnosis/Indication Diagnosis SNOMED-CT Code Diagnosis ICD10 Code Diagnosis IMO Codes Diagnosis Note [id number] Merly Rush MD [facility] [place] [address] [place] [address] 04/29/2021 00:00:00 04/29/2021 19:43:59 [id number] Merly Rush MD [facility] [place] [address] [place] [address] 06/10/2021 00:00:00 06/10/2021 18:17:47 [id number] BREANNA Joe [facility] [place] [address] [place] [address] 01/30/2022 00:00:00 01/30/2022 08:57:44 [id number] Merly Rush MD [facility] [place] [address] [place] [address] 07/08/2022 00:00:00 07/27/2022 21:05:53 [id number] Merly Rush MD [facility] [place] [address] [place] [address] 09/08/2022 00:00:00 09/08/2022 09:43:01 [id number] Merly Rush MD [facility] [place] [address] [place] [address] 09/22/2022 00:00:00 09/30/2022 20:43:04 [id number] BREANNA Joe [facility] [place] [address] [place] [address] 11/04/2022 00:00:00 11/04/2022 09:33:22 [id number] BREANNA Joe [facility] [place] [address] [place] [address] 02/19/2023 11:10:45 02/19/2023 11:31:22 Low back pain [id number] M54.50 Pain mainly across midline low back with radiation into buttocks. Denies any leg pain.She states she is very active and does regular exercise.W ill do course of steroids. She would like to hold off on referral to PT.She is requesting referral to ortho to be evaluated. [id number] FARA De Santiago [facility] [address] [facility] [address] [place] [address] 03/03/2023 08:31:18 03/03/2023 08:53:48 Health Concerns Section Related Observation LastModified by Organization Detai ls LastModified Time None Recorded Concern Status LastModified by Organization Details LastModified Time None Recorded Advance Directives Directive None Recorded Payers Insurance Date Sequence Insurance Name Policy Number Policy Alanis Covered Member ID Alanis Member ID Guarantor Name 03/04/2023 1 [facility] [id number] Madeline Rodríguez [id number] Madeline Rodríguez Notes Date Note Type Note Provider Name [...] to be evaluated further. BREANNA Joe [address] [facility], [facility] [address], [place], [address], [facility] [employer] 02/19/2023 11:52:42 OBGyn Episode No OBEpisode recorded.
--- OUTSIDE RECORDS SUMMARY | 2025-07-09 13:14 | XMS_ITS | Clinical Summary ---
Author Organization [facility] Address [address] [place] [address] Care Team Providers Care Senior Network Systems Engineer Name Role Phone Unavailable Primary Care Provider Unavailabl e Source Comments [facility],non-owned Affiliates and Associated Physician Practices is amultiple site organization consisting of ambulatory clinics and hospital sitesin [place], [place], [place] and [place]. This disclosure is being madepursuant to the Care Everywhere program and may not contain all information available regarding this patient. Last updated 18.[facility] Allergies No known active allergies Immunizations Immunization [...] 2020 ZOSTER VACCINE (1 of 2) 2020 DEPRESSION SCREENING 10/04/2024 COVID-19 VACCINE (1 - 2023-2 5 season) 2025 INFLUENZA VACCINE (#1) 2025 07/19/2017 HIB VACCINE [...] patient's age to complete this topic Insurance [facility] Address: [facility] [address] [place] [address]
--- OUTSIDE RECORDS SUMMARY | 2025-07-09 13:14 | XMS_ITS | Patient Health Record ---
Author Organization [facility] Address [address] [place], [place] [id number] Support Name Relationship Address Phone TOREY MONTES [facility] Emergency Contact Unknown [phone] CIARA BRAND Guarantor Unknown [phone] Reason For Referral No Information Plan Of Treatment No Information Insurance Providers Payer Name Payer Address Payer Phone Subscriber Number Group Number Insured Name Patient Relationship to Insured Coverage Start Date Coverage End Date [employer] [facility] [address] [address] [place], [place] [id number] CIARA BRAND Self - patient is the insured
--- OUTSIDE RECORDS SUMMARY | 2025-07-09 13:14 | XMS_ITS | Clinical Summary ---
Author Organization [facility] Address [facility] [place] [address] Care Team Providers Care Head Buyer Tobacco Name Role Phone Merly Rush MD Primary Care Provider [phone] Luis Pandya MD Unavailable [phone] Allergies No known active allergies Medications [...] COVID-19 Vaccine (1 - 2023-2 5 season) 2025 Influenza Adult (#1) 2025 07/19/2017 Meningococcal B Vaccine Aged Out No l onger eligible based on patient's age to complete this topic Meningococcal Vaccine Aged Out No evette amna eligible based on patient's age to complete this topic RSV Immunizations Under 20 Months Aged Out No longer eligible based on patient's age to complete this topic Insurance [employer] Care Teams Head Buyer Tobacco Relationship Specialty Start Date End Date Merly Rush MD [address] [place] [address] [place] [address] PCP - General FAMILY PRACTICE 09/20/18 Luis Pandya MD [facility]. [address] [facility] [place] [address] Marcella Diesel Scoop Operator CARDIOVASCULAR DISEASE 09/20/18
== END 2025-07-09 12:05 | disposition home or self-care (01) ==
LOC: CHSIMG 12:04
PROVIDERS: PCP Family Medicine; Visit Provider Family Medicine
DX: M85.88 Other specified disorders of bone density and structure, other site (principal)
CPT/HCPCS: 77080